=== PATIENT | female | born 1960 ===

== ENCOUNTER 2016-08-25 14:25 | Emergency (ER) | payer OTHER ==
[2016-08-25 14:26] VITALS: BMI 23.3
[2016-08-25 14:36] VITALS: BP 130/79; PULSE 95; RESP 18; TEMP 98.2
[2016-08-25] MEDS ORDERED: Sodium Chloride 0.9% 1,000 ML IV STA (14:56)
--- NOTE | 2016-08-25 15:00 | ED PDOC ---
Arrival/HPI - General Chief Complaint: Abdominal Pain Time Seen by Provider: 08/25/16 14:48 Historian: Patient, Parent, Front End Mechanic - History of Present Illness Time/Duration: Other (Several weeks) Symptom Onset: Gradual Symptom Course: Worsening Quality: Aching, Cramping Severity Level: Severe Activities at Onset: Rest Associated Symptoms (Text): 08/25/16 14:58 Several week history of abdominal pain with radiation into her back. Especially on the left side. No nausea vomiting or diarrhea. No genitourinary symptoms. No fever or chills. Patient has had [address] scans of the abdomen and pelvis in the last year. She had an unrevealing MRI of the lumbosacral spine. Unrevealing ultrasound. Past Medical History - Past History Past History: Non-Contributing - Infectious Disease Hx of Infectious Diseases: None - Tetanus Immunization Tetanus Immunization: Unknown - Reproductive Menopause: Yes - Cardiac Hx Cardiac Disorders: No Hx Hypertension: (?) - Pulmonary Hx Respiratory Disorders: No - Neurological Hx Neurological Disorder: No - HEENT Hx HEENT Disorder: No - Renal Hx Renal Disorder: Yes (RENAL COLIC,ABDOMINOPLASTY-"BLADDER SX") - Endocrine/Metabolic Hx Endocrine Disorders: No - Hematological/Oncological Hx Blood Disorders: No - Integumentary Hx Dermatological Disorder: No - Musculoskeletal/Rheumatological Hx Back Pain: Yes - Gastrointestinal Hx Gall Bladder Disease: Yes Hx Hemorrhoids: Yes - Genitourinary/Gynecological Hx Urinary Tract Infection: Yes - Psychiatric Hx Psychophysiologic Disorder: No Hx Substance Use: No - Surgical History Hx Section: Yes Other/Comment: Abdominoplasty, "bladder surgery" - Anesthesia Hx Anesthesia: Yes Hx Anesthesia Reactions: No Hx Malignant Hyperthermia: No - Suicidal Assessment Feels Threatened In Home Enviroment: No Family/Social History - Physician Review Nursing Documentation Reviewed: Yes Family/Social History: Unknown Family HX Smoking Status: Never Smoked Hx Alcohol Use: No Hx Substance Use: No Hx Substance Use Treatment: No Allergies/Home Meds Allergies/Adverse Reactions: Allergies No Known Allergies Allergy (Verified 06/22/16 12:46) Home Medications: Home Meds Medication Instructions Recorded Confirmed Amitriptyline [Elavil] 50 mg 08/25/16 Famotidine [Pepcid] 20 mg PO ONCE 08/25/16 08/25/16 Zolpidem Tartrate [Ambien] 10 mg PO HS 08/25/16 08/25/16 Review of Systems - Physician Review All systems were reviewed & negative as marked: Yes - Review of Systems Constitutional: absent: Fevers Respiratory: absent: SOB, Cough Cardiovascular: absent: Chest Pain, Palpitations, Syncope Gastrointestinal: Abdominal Pain. absent: Constipation, Diarrhea, Nausea, Vomiting Genitourinary Female: absent: Dysuria, Frequency, Hematuria Neurological: absent: Headache, Dizziness Physical Exam Vital Signs Temp Pulse Resp BP Pulse Ox 08/25/16 16:11 98.2 F 95 H 18 130/79 97 08/25/16 14:31 98.2 F 95 H 18 130/79 98 Temperature: Afebrile Blood Pressure: Normal Pulse: Regular Respiratory Rate: Normal Appearance: Positive for: Well-Appearing, Non-Toxic, Uncomfortable Pain Distress: Mild Mental Status: Positive for: Alert and Oriented X 3 - Systems Exam Head: Present: Atraumatic, Normocephalic Pupils: Present: PERRL Extroacular Muscles: Present: EOMI Conjunctiva: Present: Normal Mouth: Present: Moist Mucous Membranes Pharnyx: No: ERYTHEMA, EXUDATE, TONSILS ENLARGED Neck: Present: Normal Range of Motion. No: MIDLINE TENDERNESS, Paraspinal Tenderness Respiratory/Chest: Present: Clear to Auscultation, Good Air Exchange. No: Respiratory Distress, Accessory Muscle Use Cardiovascular: Present: Regular Rate and Rhythm, Normal S1, S2. No: Murmurs Abdomen: Present: Tenderness (Mild generalized abdominal tenderness with no guarding and no rebound and laparoscopic scars), Normal Bowel Sounds. No: Distention, Peritoneal Signs, Rebound, Guarding Back: Present: Normal Inspection. No: CVA Tenderness, Midline Tenderness, Paraspinal Tenderness Upper Extremity: Present: Normal Inspection. No: Cyanosis, Edema Lower Extremity: Present: Normal Inspection. No: Edema Neurological: Present: GCS=15, CN II-XII Intact, Speech Normal, Motor Func Grossly Intact Skin: Present: Warm, Dry, Normal Color. No: Rashes Medical Decision Making - Lab Interpretations Lab Results: 08/25/16 15:00 08/25/16 15:00 Lab Results 08/25/16 15:00: WBC 5.1, RBC 3.73, Hgb 12.1, Hct 35.7 L, MCV 95.7, MCH 32.4, MCHC 33.9, RDW 13.7, Plt Count 239, MPV 9.2, Gran % 42.6 L, Lymph % (Auto) 48.4 H, Hendricks % (Auto) 6.1 H, Eos % (Auto) 2.5, Baso % (Auto) 0.4, Gran # 2.17, Lymph # 2.5, [place]ricks # 0.3, Eos # 0.1, Baso # 0.02, Sodium 139, Potassium 4.4, Chloride 101, Carbon Dioxide 31, Anion Gap 11, BUN 9, Creatinine 0.7, Est GFR ( Amer) > 60, Est GFR (Non-Af Amer) > 60, Random Glucose 87, Calcium 9.4, Total Bilirubin 0.7, AST 31, ALT 24, Alkaline Phosphatase 79, Total Protein 8.6 H, Albumin 4.3, Globulin 4.3, Albumin/Globulin Ratio 1.0 L, Lipase 56, Urine Color Yellow, Urine Appearance Turbid, Urine pH 7.0, Ur Specific [place] 1.010, Urine Protein Negative, Urine Glucose (UA) Negative, Urine Ketones Negative, Urine Blood Moderate H, Urine Nitrate Positive H, Urine Bilirubin Negative, Urine Urobilinogen 0.2, Ur Leukocyte Esterase Small H, Urine RBC 2 - 5, Urine WBC 15 - 20, Ur Epithelial Cells 1 - 3, Urine Bacteria Many - RAD Interpretation Radiology Orders: 08/25/16 14:56 ABD & PELVIS W/O PO OR IV CONT [CT] Stat CT scan of the abdomen and pelvis is read by the radiologist shows constipation , otherwise no acute findings Contact Center Rep: Radiologist - Medication Orders Current Medication Orders: Discontinued Medications Sodium Chloride (Sodium Chloride 0.9%) 1,000 mls @ 1,000 mls/hr IV .Q1H STA Stop: 08/25/16 15:55 Last Admin: 08/25/16 15:09 Dose: 1,000 MLS/HR eMAR Start Stop Document 08/25/16 15:09 GMD (Rec: 08/25/16 15:09 GMD [facility] [id number]) Intravenous Solution Start Date 08/25/16 Start Time 15:09 End Date 08/25/16 End time 16:09 Total Infusion Time 60 Ketorolac Tromethamine (Toradol) 30 mg IVP STAT STA Stop: 08/25/16 14:57 Last Admin: 08/25/16 15:09 Dose: 30 MG IVP Administration Document 08/25/16 15:09 GMD (Rec: 08/25/16 15:09 GMD [facility] [id number]) Charges for Administration # of IVP Administrations 1 Pantoprazole Sodium (Protonix Inj) 40 mg IVP STAT STA Stop: 08/25/16 14:57 Last Admin: 08/25/16 15:09 Dose: 40 MG IVP Administration Document 08/25/16 15:09 GMD (Rec: 08/25/16 15:09 GMD [facility] [id number]) Charges for Administration # of IVP Administrations 1 Disposition/Present on Arrival - Present on Arrival Any Indicators Present on Arrival: No History of DVT/PE: No History of Uncontrolled Diabetes: No Urinary Catheter: No History of Decub. Ulcer: No History Surgical Site Infection Following: None - Disposition Have Diagnosis and Disposition been Completed?: Yes Diagnosis: Abdominal pain, Urinary tract infection Disposition: HOME/ ROUTINE Disposition Time: 16:21 Patient Plan: Discharge Patient Problems: Current Active Problems Problem Status Diagnosed Colitis Acute Condition: IMPROVED Discharge Instructions (ExitCare): Constipation (ED), Chronic Abdominal Pain in Children (ED), Abdominal Pain (ED), Acute Abdominal Pain (ED), Urinary Tract Infection in Women (ED) Prescriptions: Nitrofurantoin Macrocrystals [Macrobid] 100 mg PO BID #14 cap
[2016-08-25 15:12] LABS: ADD MANUAL DIFF? NO
[2016-08-25 15:16] LABS: BASO # 0.02 K/mm3 (0.0-2.0); BASO % 0.4 % (0.0-3.0); EOS # 0.1 (0.0-0.7); EOS % 2.5 % (1.5-5.0); GRAN # 2.17 (1.4-6.5); GRAN % 42.6 % (50.0-68.0); HEMATOCRIT 35.7 % (36.0-48.0); LYMPH # 2.5 (1.2-3.4); LYMPH % 48.4 % (22.0-35.0); MEAN CELL VOLUME 95.7 fL (80.0-105.0); MEAN CORPUSCULAR HEMOGLOBIN 32.4 pg (25.0-35.0); MEAN CORPUSCULAR HGB CONC 33.9 g/dl (31.0-37.0); MEAN PLATELET VOLUME 9.2 fl (7.0-11.0); MONO # 0.3 (0.1-0.6); MONO % 6.1 % (1.0-6.0); PLATELET COUNT 239 10^3/uL (120.0-450.0); RED CELL DISTRIBUTION WIDTH 13.7 % (11.5-14.5); URINE BILIRUBIN NEGATIVE (NEGATIVE); URINE BLOOD MODERATE (NEGATIVE); URINE GLUCOSE (UA) NEGATIVE (NEGATIVE); URINE KETONE NEGATIVE (NEGATIVE); URINE LEUKOCYTE ESTERASE SMALL Leu/uL (NEGATIVE); URINE PROTEIN NEGATIVE mg/dL (<30 mg/dL); URINE UROBILINOGEN 0.2 E.U./dL (<1 E.U./dL); WHITE BLOOD COUNT 5.1 10^3/ul (4.5-11.0)
[2016-08-25 15:18] LABS: URINE APPEARANCE TURBID (CLEAR); URINE COLOR YELLOW (YELLOW)
[2016-08-25 15:19] LABS: URINE BACTERIA MANY (NEG); URINE WBC 15 - 20 /hpf (0-6)
[2016-08-25 15:28] LABS: ALKALINE PHOSPHATASE 79 U/L (38-133); ALT/SGPT 24 U/L (7-56); AST/SGOT 31 U/L (15-39); BILIRUBIN,TOTAL 0.7 mg/dL (0.2-1.3); BLOOD UREA NITROGEN 9 mg/dL (7-21); CALCIUM 9.4 mg/dL (8.4-10.5); CARBON DIOXIDE 31 mmol/L (21-33); CHLORIDE 101 mmol/L (98-107); GFR AFRICAN-AMERICAN > 60; GLUCOSE,RANDOM 87 mg/dL (70-110); LIPASE 56 U/L (23-300); SODIUM 139 mmol/L (132-148); TOTAL PROTEIN 8.6 g/dL (5.8-8.3)
[2016-08-25 15:31] LABS: POTASSIUM 4.4 mmol/L (3.6-5.0)
--- NOTE | 2016-08-25 15:59 | CT ---
PROCEDURE: CT Abdomen and Pelvis without Oral or IV contrast. HISTORY: left sided pain COMPARISON: CT abdomen and pelvis with contrast performed 06/22/16 TECHNIQUE: Contiguous axial images of the abdomen and pelvis. No oral or IV contrast administered. Coronal and Sagittal reformats generated and reviewed. Radiation dose: Total exam DLP = 405.85 mGy-cm. FINDINGS: There is limited evaluation of the solid organs without the administration of IV contrast. LOWER THORAX: Mild bibasilar atelectasis. There is no visible pleural effusion or pneumothorax. LIVER: Unremarkable unenhanced appearance. GALLBLADDER AND BILE DUCTS: Cholecystectomy. PANCREAS: Unremarkable unenhanced appearance. SPLEEN: Unremarkable unenhanced appearance. ADRENALS: Unremarkable unenhanced appearance. KIDNEYS AND URETERS: No hydronephrosis or obstructing renal calculus. BLADDER: The urinary bladder appears unremarkable. REPRODUCTIVE: Uterus is present. 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 APPENDIX: The appendix appears within normal limits of caliber. No secondary signs of acute appendicitis. BOWEL: The stomach is nondistended. Lack of oral contrast limits evaluation for bowel pathology. The bowel loops appear within normal limits of caliber without evidence of intestinal obstruction. Moderate diffuse constipation. PERITONEUM: No significant free fluid. No definite free air. LYMPH NODES: No bulky lymphadenopathy identified. VASCULATURE: Grossly unremarkable unenhanced appearance. No aortic aneurysm. BONES: Degenerative changes of the spine. OTHER FINDINGS: None. IMPRESSION: Moderate diffuse constipation. Cholecystectomy.
[2016-08-25 16:12] VITALS: O2SAT 97
== END 2016-08-25 16:46 | disposition home or self-care (01) ==
LOC: ED 14:25
DX: N39.0 Urinary tract infection, site not specified (principal); R10.9 Unspecified abdominal pain
CPT/HCPCS: 74176; 80053; 81001; 83690; 85025; 87086; 87181; 96361; 96374; 96375; 99284; C9113; J1885; J7040

== ENCOUNTER 2017-10-25 08:54 | Emergency (ER) | payer OTHER ==
[2017-10-25 08:57] VITALS: BMI 23.3
[2017-10-25 09:19] VITALS: RESP 18
[2017-10-25] MEDS ORDERED: Alum-Mag Hydrox-Simethicone Susp (30 mL) PO STA (09:30)
[2017-10-25] MEDS ORDERED: Atrop/Hyosc/Scopal/PB Elixir (120 ml) PO STA (09:30)
[2017-10-25] MEDS ORDERED: Sodium Chloride 0.9% 500 ML IV STA (09:30)
--- NOTE | 2017-10-25 09:30 | ED PDOC ---
Arrival/HPI - General Chief Complaint: Abdominal Pain Time Seen by Provider: 10/25/17 09:19 Historian: Patient - History of Present Illness Narrative History of Present Illness (Text): 10/25/17 09:30 This 57 yo female presents to this ED c/o generalized abdominal pain x 1 day. Patient has multiple visit for abdominal pain in this Emergency department before. Patient tolerates PO fluids, and meals. Denies nausea, vomiting, diarrhea, urinary symptoms. Time/Duration: Other (see hpi) Context: Home Past Medical History - Provider Review Nursing Documentation Reviewed: Yes - Past History Past History: Non-Contributing - Infectious Disease Hx of Infectious Diseases: None - Tetanus Immunization Tetanus Immunization: Unknown - Cardiac Hx Cardiac Disorders: No Hx Hypertension: (?) - Pulmonary Hx Respiratory Disorders: No - Neurological Hx Neurological Disorder: No - HEENT Hx HEENT Disorder: No - Renal Hx Renal Disorder: Yes (RENAL COLIC,ABDOMINOPLASTY-"BLADDER SX") - Endocrine/Metabolic Hx Endocrine Disorders: No - Hematological/Oncological Hx Blood Disorders: No - Integumentary Hx Dermatological Disorder: No - Musculoskeletal/Rheumatological Hx Back Pain: Yes - Gastrointestinal Hx Gall Bladder Disease: Yes Hx Hemorrhoids: Yes - Genitourinary/Gynecological Hx Urinary Tract Infection: Yes - Psychiatric Hx Psychophysiologic Disorder: No Hx Substance Use: No - Surgical History Hx Section: Yes Other/Comment: Abdominoplasty, "bladder surgery" - Anesthesia Hx Anesthesia: Yes Hx Anesthesia Reactions: No Hx Malignant Hyperthermia: No - Suicidal Assessment Feels Threatened In Home Enviroment: No Family/Social History - Physician Review Nursing Documentation Reviewed: Yes Family/Social History: Other (noncontributory) Smoking Status: Never Smoked Hx Alcohol Use: No Hx Substance Use: No Hx Substance Use Treatment: No Allergies/Home Meds Allergies/Adverse Reactions: Allergies No Known Allergies Allergy (Verified 10/25/17 09:19) Home Medications: Home Meds Medication Instructions Recorded Confirmed Zolpidem Tartrate [Ambien] 10 mg PO HS 08/25/16 10/25/17 Cyclobenzaprine [Flexeril] 1 tab PO DAILY 10/25/17 10/25/17 Gabapentin [Neurontin] 1 cap PO QID 10/25/17 10/25/17 Hydrocodone/Acetaminophen 1 tab PO PRN PRN 10/25/17 10/25/17 [Hydrocodone-Acetamin 5-325 mg] Mirtazapine [Remeron] 1 tab PO HS 10/25/17 10/25/17 Naproxen [Naproxen] 1 tab PO PRN PRN 10/25/17 10/25/17 Omeprazole [Omeprazole] 1 cap PO BID 10/25/17 10/25/17 Vortioxetine Hydrobromide 1 tab PO DAILY 10/25/17 10/25/17 [Trintellix] Review of Systems - Review of Systems Constitutional: Normal. absent: Fatigue, Weight Change, Fevers Eyes: Normal ENT: Normal Respiratory: Normal. absent: SOB, Cough Cardiovascular: Normal Gastrointestinal: Abdominal Pain. absent: Stool Changes, Constipation, Nausea, Vomiting Genitourinary Female: Normal. absent: Dysuria, Frequency, Hematuria, Vaginal Bleeding Musculoskeletal: Normal Skin: Normal Neurological: Normal Endocrine: Normal Hemo/Lymphatic: Normal Psychiatric: Normal Physical Exam Vital Signs Temp Pulse Resp BP Pulse Ox 10/25/17 12:31 18 100 10/25/17 12:24 68 18 122/78 98 10/25/17 09:17 98 F 85 18 116/78 99 Temperature: Afebrile Blood Pressure: Normal Pulse: Regular Respiratory Rate: Normal Appearance: Positive for: Well-Appearing, Non-Toxic, Comfortable Pain Distress: None Mental Status: Positive for: Alert and Oriented X 3 - Systems Exam Head: Present: Atraumatic, Normocephalic Pupils: Present: PERRL Extroacular Muscles: Present: EOMI Conjunctiva: Present: Normal Mouth: Present: Moist Mucous Membranes Neck: Present: Normal Range of Motion Respiratory/Chest: Present: Clear to Auscultation, Good Air Exchange. No: Respiratory Distress, Accessory Muscle Use Cardiovascular: Present: Regular Rate and Rhythm, Normal S1, S2. No: Murmurs Abdomen: No: Tenderness, Distention, Peritoneal Signs, Rebound, Guarding Genitourinary/Pelvic Exam: Present: Other (deferred by patient) Back: Present: Normal Inspection Upper Extremity: Present: Normal Inspection, Normal ROM, NORMAL PULSES. No: Cyanosis, Edema Lower Extremity: Present: Normal Inspection, NORMAL PULSES, Normal ROM. No: Edema Neurological: Present: GCS=15, CN II-XII Intact, Speech Normal, Motor Func Grossly Intact, Normal Sensory Function, Normal Cerebellar Funct, Gait Normal, Memory Normal Skin: Present: Warm, Dry, Normal Color. No: Rashes Psychiatric: Present: Alert, Oriented x 3, Normal Insight, Normal Concentration Medical Decision Making ED Course and Treatment: 10/25/17 11:48 Re-evaluation. Patient feels better. Discussed results and plan with patient who expresses understanding. All questions answered and there is agreement with the plan to discharge home with instructions. Patient stable for discharge. Return if symptoms persist or worsen. I reviewed CT scan, and labs result wit patient. Patient requested antibiotic. Patient is requesting Percocet for pain. I told patient that she has a Hx. constipation, and Percocet could make her become more constipated. I will be given her a prescription for constipation, and to Dr. Greene, GI doctor. Patient understood plan. 10/25/17 11:54 Patient noted a vaginal discharge for 2 months. I will order STD test, Rocephine, and Azithromycin Re-evaluation Time: 11:48 Reassessment Condition: Re-examined, Improved - Lab Interpretations Microbiology Results: Microbiology Results 10/25/17 10:51 Urine,Clean Catch Urine Culture - Final No Growth (<1,000 CFU/ML) Lab Results: 10/25/17 09:52 10/25/17 09:52 Lab Results 10/25/17 12:08: C.trachomatis RNA (TMA) Not detected, N.gonorrhoeae RNA (TMA) Not detected 10/25/17 09:52: Sodium 145, Potassium 4.2, Chloride 104, Carbon Dioxide 30, Anion Gap 15, BUN 6 L, Creatinine 0.7, Est GFR ( Amer) > 60, Est GFR (Non -Af Amer) > 60, Random Glucose 101, Calcium 9.4, Magnesium 2.1, Total Bilirubin 0.6, AST 25, ALT 21, Alkaline Phosphatase 81, Total Protein 8.3, Albumin 4.6, Globulin 3.7, Albumin/Globulin Ratio 1.2, Lipase 64 10/25/17 09:52: Urine Color Yellow, Urine Appearance Sl cloudy, Urine pH 6.0, Ur Specific [place] 1.010, Urine Protein Negative, Urine Glucose (UA) Negative, Urine Ketones Negative, Urine Blood Moderate H, Urine Nitrate Negative, Urine Bilirubin Negative, Urine Urobilinogen 0.2, Ur Leukocyte Esterase Small H, Urine RBC 1 - 3, Urine WBC 1 - 3, Ur Epithelial Cells 6 - 8, Urine Bacteria Trace 10/25/17 09:52: WBC 5.2, RBC 3.89, Hgb 12.5, Hct 36.6, MCV 94.1, MCH 32.1, MCHC 34.2, RDW 13.3, Plt Count 266, MPV 9.4, Gran % 36.0 L, Lymph % (Auto) 51.7 H, [place] % (Auto) 7.6 H, Eos % (Auto) 3.9, Baso % (Auto) 0.8, Gran # 1.86, Lymph # ( Auto) 2.7, [place] # (Auto) 0.4, Eos # (Auto) 0.2, Baso # (Auto) 0.04 I have reviewed the lab results: Yes Interpretation: No clinic. lab abnormalty - RAD Interpretation Narrative RAD Interpretations (Text): 10/25/17 11:51 PROCEDURE: CT Abdomen and Pelvis with contrast HISTORY: abdominal pain COMPARISON: None. TECHNIQUE: Contrast dose: 100 cc of Omni 350 Radiation dose: Total exam DLP = 552 mGy-cm. This CT exam was performed using one or more of the following dose reduction techniques: Automated exposure control, adjustment of the mA and/or kV according to patient size, and/or use of iterative reconstruction technique. FINDINGS: LOWER THORAX: Unremarkable. LIVER: Unremarkable. No gross lesion or ductal dilatation. GALLBLADDER AND BILE DUCTS: Gallbladder removed PANCREAS: Unremarkable. No gross lesion or ductal dilatation. SPLEEN: Unremarkable. ADRENALS: Unremarkable. No mass. KIDNEYS AND URETERS: Unremarkable. No hydronephrosis. No solid mass. VASCULATURE: Unremarkable. No aortic aneurysm. BOWEL: Unremarkable. No obstruction. No gross mural thickening. APPENDIX: Normal appendix. PERITONEUM: Unremarkable. No free fluid. No free air. LYMPH NODES: Unremarkable. No enlarged lymph nodes. BLADDER: Unremarkable. REPRODUCTIVE: Unremarkable. BONES: No acute fracture. OTHER FINDINGS: None. IMPRESSION: No acute findings Radiology Orders: 10/25/17 09:32 ABD & PELVIS IV CONTRAST ONLY [CT] Stat - Medication Orders Current Medication Orders: Discontinued Medications Al Hydrox/Mg Hydrox/Simethicone (Maalox Plus 30 Ml) 30 ml PO STAT STA Stop: 10/25/17 09:31 Last Admin: 10/25/17 09:53 Dose: 30 ml Azithromycin (Zithromax) 1,000 mg PO STAT STA PRN Reason: Protocol Stop: 10/25/17 11:57 Last Admin: 10/25/17 12:13 Dose: 1,000 mg Belladonna/Phenobarbital ( Elixir) 10 ml PO STAT STA Stop: 10/25/17 09:31 Last Admin: 10/25/17 10:12 Dose: 10 ml Ceftriaxone Sodium (Rocephin) 250 mg IM STAT STA PRN Reason: Protocol Stop: 10/25/17 11:56 Last Admin: 10/25/17 12:13 Dose: 250 mg IM Administration Charges Document 10/25/17 12:13 GMD (Rec: 10/25/17 12:13 GMD [id number]) Injection Site MAR Injection Site Left Deltoid Charges for Administration # of IM Administrations 1 Sodium Chloride (Sodium Chloride 0.9%) 500 mls @ 1,000 mls/hr IV .Q30M STA Stop: 10/25/17 09:59 Last Admin: 10/25/17 09:53 Dose: 1,000 mls/hr eMAR Start Stop Document 10/25/17 09:53 GMD (Rec: 10/25/17 09:54 GMD [id number]) Intravenous Solution Start Date 10/25/17 Start Time 09:54 End Date 10/25/17 End time 10:24 Total Infusion Time 30 Ketorolac Tromethamine (Toradol) 15 mg IVP STAT STA Stop: 10/25/17 09:35 Last Admin: 10/25/17 09:53 Dose: 15 mg MAR Pain Assessment Document 10/25/17 09:53 GMD (Rec: 10/25/17 09:53 GMD [id number]) Pain Reassessment Is this a pain reassessment? No Presence of Pain Presence of Pain Yes IVP Administration Document 10/25/17 09:53 GMD (Rec: 10/25/17 09:53 GMD [id number]) Charges for Administration # of IVP Administrations 1 Lidocaine HCl (Lidocaine 2% Viscous) 5 ml MM STAT STA Stop: 10/25/17 09:31 Last Admin: 10/25/17 09:53 Dose: 5 ml Oxycodone/Acetaminophen (Percocet 5/325 Mg Tab) 1 tab PO STAT STA Stop: 10/25/17 11:57 Last Admin: 10/25/17 12:13 Dose: 1 tab MAR Pain Assessment Document 10/25/17 12:13 GMD (Rec: 10/25/17 12:13 GMD [id number]) Pain Reassessment Is this a pain reassessment? No Presence of Pain Presence of Pain Yes Pantoprazole Sodium (Protonix Inj) 40 mg IVP STAT STA Stop: 10/25/17 09:31 Last Admin: 10/25/17 09:53 Dose: 40 mg IVP Administration Document 10/25/17 09:53 GMD (Rec: 10/25/17 09:53 GMD [id number]) Charges for Administration # of IVP Administrations 1 Disposition/Present on Arrival - Present on Arrival Any Indicators Present on Arrival: No History of DVT/PE: No History of Uncontrolled Diabetes: No Urinary Catheter: No History of Decub. Ulcer: No History Surgical Site Infection Following: None - Disposition Have Diagnosis and Disposition been Completed?: Yes Diagnosis: Nonspecific abdominal pain, Constipation, Vaginal discharge, Drug-seeking behavior Disposition: HOME/ ROUTINE Disposition Time: 11:57 Patient Plan: Discharge Condition: GOOD Discharge Instructions (ExitCare): Constipation, Adult (DC) Print Language: PORTUGUESE Additional Instructions: Call private [employer] doctor for follow up visit. take medication as instructed. Call Dr. Greene for revaluation and your private doctor. Return to emergency if symptoms worsen. Prescriptions: Cephalexin [cephalexin] 500 mg PO BID #14 cap Lactulose 20 gm PO BID PRN #120 ml PRN Reason: Constipation metroNIDAZOLE [Flagyl] 2,000 mg PO DAILY #4 tab Referrals: Siri Barnes DO [Primary Care Provider] - Follow up with primary Forms: [employer] (Burkinan)
[2017-10-25 10:01] LABS: BASO # 0.04 K/mm3 (0.0-2.0); BASO % 0.8 % (0.0-3.0); EOS # 0.2 (0.0-0.7); EOS % 3.9 % (1.5-5.0); GRAN # 1.86 (1.4-6.5); HEMOGLOBIN 12.5 g/dL (12.0-16.0); LYMPH # 2.7 (1.2-3.4); LYMPH % 51.7 % (22.0-35.0); MEAN CELL VOLUME 94.1 fl (80.0-105.0); MEAN CORPUSCULAR HEMOGLOBIN 32.1 pg (25.0-35.0); MEAN CORPUSCULAR HGB CONC 34.2 g/dl (31.0-37.0); MEAN PLATELET VOLUME 9.4 fl (7.0-11.0); MONO # 0.4 (0.1-0.6); MONO % 7.6 % (1.0-6.0); RBC 3.89 10^6/uL (3.5-6.1); RED CELL DISTRIBUTION WIDTH 13.3 % (11.5-14.5); WHITE BLOOD COUNT 5.2 10^3/ul (4.5-11.0)
[2017-10-25 10:02] LABS: URINE BILIRUBIN NEGATIVE (NEGATIVE); URINE BLOOD MODERATE (NEGATIVE); URINE GLUCOSE (UA) NEGATIVE (NEGATIVE); URINE LEUKOCYTE ESTERASE SMALL Leu/uL (NEGATIVE); URINE PROTEIN NEGATIVE mg/dL (<30 mg/dL); URINE UROBILINOGEN 0.2 E.U./dL (<1 E.U./dL)
[2017-10-25] MEDS ORDERED: Iohexol 350 MG/100 ML VIAL ONE (10:03)
[2017-10-25 10:04] LABS: URINE APPEARANCE SL CLOUDY (CLEAR); URINE COLOR YELLOW (YELLOW)
[2017-10-25 10:11] LABS: URINE BACTERIA TRACE (NEG)
[2017-10-25 10:12] LABS: ALB/GLOB RATIO 1.2 (1.1-1.8); ALBUMIN 4.6 g/dL (3.0-4.8); ALT/SGPT 21 U/L (7-56); AST/SGOT 25 U/L (14-36); BLOOD UREA NITROGEN 6 mg/dL (7-21); CALCIUM 9.4 mg/dL (8.4-10.5); GFR AFRICAN-AMERICAN > 60; GFR NON-AFRICAN AMERICAN > 60; LIPASE 64 U/L (23-300)
--- NOTE | 2017-10-25 10:55 | CT ---
PROCEDURE: CT Abdomen and Pelvis with contrast HISTORY: abdominal pain COMPARISON: None. TECHNIQUE: Contrast dose: 100 cc of Omni 350 Radiation dose: Total exam DLP = 552 mGy-cm. This CT exam was performed using one or more of the following dose reduction techniques: Automated exposure control, adjustment of the mA and/or kV according to patient size, and/or use of iterative reconstruction technique. FINDINGS: LOWER THORAX: Unremarkable. LIVER: Unremarkable. No gross lesion or ductal dilatation. GALLBLADDER AND BILE DUCTS: Gallbladder removed PANCREAS: Unremarkable. No gross lesion or ductal dilatation. SPLEEN: Unremarkable. ADRENALS: Unremarkable. No mass. KIDNEYS AND URETERS: Unremarkable. No hydronephrosis. No solid mass. VASCULATURE: Unremarkable. No aortic aneurysm. BOWEL: Unremarkable. No obstruction. No gross mural thickening. APPENDIX: Normal appendix. PERITONEUM: Unremarkable. No free fluid. No free air. LYMPH NODES: Unremarkable. No enlarged lymph nodes. BLADDER: Unremarkable. REPRODUCTIVE: Unremarkable. BONES: No acute fracture. OTHER FINDINGS: None. IMPRESSION: No acute findings
[2017-10-25] MEDS ORDERED: cefTRIAXone (Rocephin) 250 mg Inj IM STA (11:55)
[2017-10-25] MEDS ORDERED: Oxycodone/Acetaminophen 5/325 mg Tab PO STA (11:56)
[2017-10-25 12:04] VITALS: TEMP 98
[2017-10-25 12:24] VITALS: BP 122/78; PULSE 68
[2017-10-25 12:32] VITALS: O2SAT 100
== END 2017-10-25 12:31 | disposition home or self-care (01) ==
LOC: ED 08:54
DX: K59.00 Constipation, unspecified (principal); N89.8 Other specified noninflammatory disorders of vagina; R10.84 Generalized abdominal pain; Z76.5 Malingerer [conscious simulation]
CPT/HCPCS: 74177; 80053; 81001; 83690; 83735; 85025; 87086; 87491; 87591; 96372; 96374; 96375; 99284; C9113; J0696; J1885; J7040; Q9967

== ENCOUNTER 2017-12-06 08:53 | Emergency (ER) | payer OTHER ==
[2017-12-06 08:53] VITALS: BMI 23.3
--- NOTE | 2017-12-06 09:44 | ED PDOC ---
Arrival/HPI - General Chief Complaint: GI Problem Time Seen by Provider: 12/06/17 09:28 Historian: Patient - History of Present Illness Narrative History of Present Illness (Text): 12/06/17 09:40 57 y/o female, pmh including colitis, post menopausal, nkda, c/o abdominal pain x 3-4 weeks. Pt. stated that she has upper abdominal pain on and off x 3-4 weeks associated with occasional feeling nausea/vomiting, occasionally with watery diarrhea, no recent reporting diarrhea, no palpitation, no chest pain or shortness of breath, no other medical or psychological complaints. Past Medical History - Provider Review Nursing Documentation Reviewed: Yes - Past History Past History: Non-Contributing - Infectious Disease Hx of Infectious Diseases: None - Tetanus Immunization Tetanus Immunization: Unknown - Reproductive Menopause: Yes - Cardiac Hx Cardiac Disorders: No Hx Hypertension: Yes (?) - Pulmonary Hx Respiratory Disorders: No - Neurological Hx Neurological Disorder: No - HEENT Hx HEENT Disorder: No - Renal Hx Renal Disorder: Yes (RENAL COLIC,ABDOMINOPLASTY-"BLADDER SX") - Endocrine/Metabolic Hx Endocrine Disorders: No - Hematological/Oncological Hx Blood Disorders: No - Integumentary Hx Dermatological Disorder: No - Musculoskeletal/Rheumatological Hx Back Pain: Yes - Gastrointestinal Hx Gall Bladder Disease: Yes Hx Hemorrhoids: Yes - Genitourinary/Gynecological Hx Urinary Tract Infection: Yes - Psychiatric Hx Psychophysiologic Disorder: No Hx Substance Use: No - Surgical History Hx Section: Yes Hx Cholecystectomy: Yes Hx Hysterectomy: Yes Other/Comment: Abdominoplasty, "bladder surgery" - Anesthesia Hx Anesthesia: Yes Hx Anesthesia Reactions: No Hx Malignant Hyperthermia: No - Suicidal Assessment Feels Threatened In Home Enviroment: No Family/Social History - Physician Review Nursing Documentation Reviewed: Yes Family/Social History: Unknown Family HX Smoking Status: Never Smoked Hx Alcohol Use: No Hx Substance Use: No Hx Substance Use Treatment: No Allergies/Home Meds Allergies/Adverse Reactions: Allergies No Known Allergies Allergy (Verified 10/25/17 09:19) Home Medications: Home Meds Medication Instructions Recorded Confirmed Zolpidem Tartrate [Ambien] 10 mg PO HS 08/25/16 12/06/17 Cyclobenzaprine [Flexeril] 1 tab PO DAILY 10/25/17 12/06/17 Gabapentin [Neurontin] 1 cap PO QID 10/25/17 12/06/17 Hydrocodone/Acetaminophen 1 tab PO PRN PRN 10/25/17 12/06/17 [Hydrocodone-Acetamin 5-325 mg] Mirtazapine [Remeron] 1 tab PO HS 10/25/17 12/06/17 Naproxen [Naproxen] 1 tab PO PRN PRN 10/25/17 12/06/17 Omeprazole [Omeprazole] 1 cap PO BID 10/25/17 12/06/17 Vortioxetine Hydrobromide 1 tab PO DAILY 10/25/17 12/06/17 [Trintellix] metroNIDAZOLE [Flagyl] 500 mg PO DAILY 12/06/17 12/06/17 Review of Systems - Review of Systems Constitutional: absent: Fatigue, Fevers Eyes: absent: Vision Changes ENT: absent: Hearing Changes Respiratory: absent: SOB, Cough Cardiovascular: absent: Chest Pain Gastrointestinal: Abdominal Pain, Diarrhea, Nausea, Vomiting Musculoskeletal: absent: Arthralgias, Back Pain Skin: absent: Rash, Pruritis Neurological: absent: Headache, Dizziness Psychiatric: absent: Anxiety, Depression, Suicidal Ideation Physical Exam Vital Signs Temp Pulse Resp BP Pulse Ox 12/06/17 12:15 63 20 135/78 100 12/06/17 09:10 98.8 F 76 18 127/88 99 - Systems Exam Head: Present: Atraumatic, Normocephalic Pupils: Present: PERRL Extroacular Muscles: Present: EOMI Conjunctiva: Present: Normal Mouth: Present: Moist Mucous Membranes Neck: Present: Normal Range of Motion Respiratory/Chest: Present: Clear to Auscultation, Good Air Exchange. No: Respiratory Distress, Accessory Muscle Use Cardiovascular: Present: Regular Rate and Rhythm, Normal S1, S2. No: Murmurs Abdomen: Present: Tenderness (epigastric), Other (negative elmore signs, negative mcburney point tenderness, no cva tenderness). No: Distention, Peritoneal Signs, Rebound, Guarding Back: Present: Normal Inspection Upper Extremity: Present: Normal Inspection. No: Cyanosis, Edema Lower Extremity: Present: Normal Inspection. No: Edema Neurological: Present: GCS=15, CN II-XII Intact, Speech Normal Skin: Present: Warm, Dry, Normal Color. No: Rashes Psychiatric: Present: Alert, Oriented x 3, Normal Insight, Normal Concentration Medical Decision Making ED Course and Treatment: 12/06/17 09:49 Differential: Colitis vs. UTI vs. Gastritis vs. Drug abuse -labs/lipase/UA -CT abdomen and pelvis -IV pepcid/zofran/toradol -Observe and reassess 12/06/17 14:20 -CT abdomen and pelvis show No acute findings related to/accounting for the clinical presentation but there is constipation. -Labs are non-significant -Lipase within normal limit -UA show +UTI, IV rocephine ordered -Relistor ordered as the patient is chronically on percocet for her chronic pain and this is likely opiod induced constipation -Pt. is comfortable, labs and radiology discussed with the patient, advised to follow up with the pmd for follow up. I advised the patient to stop macrobid and start keflex -Discharge home with keflex, pepcid, magnesium citrate, high fiber diet, follow up with your own pmd and urologist within 2 days, return to the ER for any new or worsening signs or symptoms. - Lab Interpretations Lab Results: 12/06/17 10:39 12/06/17 10:39 Lab Results 12/06/17 12:50: Urine Color Yellow, Urine Appearance Turbid, Urine pH 6.0, Ur Specific [place] 1.025, Urine Protein Negative, Urine Glucose (UA) Negative, Urine Ketones Negative, Urine Blood Moderate H, Urine Nitrate Negative, Urine Bilirubin Negative, Urine Urobilinogen 0.2, Ur Leukocyte Esterase Moderate H, Urine RBC 1 - 3, Urine WBC 5 - 10, Ur Epithelial Cells 4 - 5, Urine Bacteria Trace 12/06/17 10:39: WBC 5.3, RBC 3.62, Hgb 11.4 L, Hct 33.8 L, MCV 93.4, MCH 31.5, MCHC 33.7, RDW 13.2, Plt Count 225, MPV 9.8, Gran % 42.3 L, Lymph % (Auto) 48.7 H, Johnson % (Auto) 5.9, Eos % (Auto) 2.9, Baso % (Auto) 0.2, Gran # 2.23, Lymph # (Auto) 2.6, [place] # (Auto) 0.3, Eos # (Auto) 0.2, Baso # (Auto) 0.01 12/06/17 10:39: Sodium 144, Potassium 3.9, Chloride 105, Carbon Dioxide 28, Anion Gap 15, BUN 5 L, Creatinine 0.6 L, Est GFR ( Amer) > 60, Est GFR ( Non-Af Amer) > 60, Random Glucose 100, Calcium 9.2, Magnesium 2.0, Total Bilirubin 0.4, AST 24, ALT 20, Alkaline Phosphatase 74, Total Protein 7.7, Albumin 4.2, Globulin 3.5, Albumin/Globulin Ratio 1.2, Lipase 63 - RAD Interpretation Radiology Orders: 12/06/17 09:44 ABD & PELVIS IV CONTRAST ONLY [CT] Stat Date of service: 12/06/2017 PROCEDURE: CT Abdomen and Pelvis with contrast HISTORY: Abdominal pain/nausea/vomiting/diarrhea COMPARISON: 03/05/2017 and 10/25/[address] scans of the abdomen and pelvis. TECHNIQUE: Contrast dose: 100 cc Omnipaque 300 Radiation dose: Total exam DLP = 539.19 mGy-cm. This CT exam was performed using one or more of the following dose reduction techniques: Automated exposure control, adjustment of the mA and/or kV according to patient size, and/or use of iterative reconstruction technique. FINDINGS: LOWER THORAX: Unremarkable. LIVER: Unremarkable. No gross lesion or ductal dilatation. GALLBLADDER AND BILE DUCTS: Unremarkable. PANCREAS: Unremarkable. No gross lesion or ductal dilatation. SPLEEN: Unremarkable. ADRENALS: Unremarkable. No mass. KIDNEYS AND URETERS: Unremarkable. No hydronephrosis. No solid mass. VASCULATURE: Unremarkable. No aortic aneurysm. BOWEL: Constipation without fecal impaction or obstruction. APPENDIX: Normal appendix. PERITONEUM: Unremarkable. No free fluid. No free air. LYMPH NODES: Unremarkable. No enlarged lymph nodes. BLADDER: Unremarkable. REPRODUCTIVE: Unremarkable. BONES: No acute fracture. OTHER FINDINGS: None. IMPRESSION: No acute findings related to/accounting for the clinical presentation. Additional benign and/or incidental findings described above. No significant interval change compared to the prior examination(s). Goncalves Chalk Machine Operator: Radiologist - Medication Orders Current Medication Orders: Discontinued Medications Famotidine (Pepcid) 20 mg IVP STAT STA Stop: 12/06/17 09:45 Last Admin: 12/06/17 10:22 Dose: 20 mg IVP Administration Document 12/06/17 10:22 ISI (Rec: 12/06/17 10:22 ISI [id number]-PC) Charges for Administration # of IVP Administrations 1 Ceftriaxone Sodium (Rocephin 1 Gram Ivpb) 1 gm in 100 mls @ 200 mls/hr IVPB STAT STA PRN Reason: Protocol Stop: 12/06/17 14:13 Ketorolac Tromethamine (Toradol) 30 mg IVP STAT STA Stop: 12/06/17 09:45 Last Admin: 12/06/17 10:21 Dose: 30 mg [facility] Pain Assessment Document 12/06/17 10:21 ISI (Rec: 12/06/17 10:22 ISI [id number]) Pain Reassessment Is this a pain reassessment? No Sleep Is patient sleeping during reassessment? Yes Pain Scale Used Pain Scale Used Numeric IVP Administration Document 12/06/17 10:21 ISI (Rec: 12/06/17 10:22 ISI [id number]) Charges for Administration # of IVP Administrations 1 Re-Assess: [facility] Pain Assessment Document 12/06/17 11:21 ISI (Rec: 12/06/17 13:10 ISI BARRON-PC) Pain Reassessment Is this a pain reassessment? Yes Sleep Is patient sleeping during reassessment? No Presence of Pain Presence of Pain Yes Pain Scale Used Pain Scale Used Numeric Description Description Intermittent Intensity of Pain at present 5 Methylnaltrexone Creola (Relistor) 8 mg SC ONCE ONE Stop: 12/06/17 13:46 Ondansetron HCl (Zofran Inj) 4 mg IVP STAT STA Stop: 12/06/17 09:45 Last Admin: 12/06/17 10:22 Dose: 4 mg IVP Administration Document 12/06/17 10:22 ISI (Rec: 12/06/17 10:22 [facility] [id number]) Charges for Administration # of IVP Administrations 1 - PA / MANUFACTURING MANAGEMENT ASSOCIATE / Resident Statement MD/DO has reviewed & agrees with the documentation as recorded. Disposition/Present on Arrival - Present on Arrival Any Indicators Present on Arrival: No History of DVT/PE: No History of Uncontrolled Diabetes: No Urinary Catheter: No History of Decub. Ulcer: No History Surgical Site Infection Following: None - Disposition Have Diagnosis and Disposition been Completed?: Yes Diagnosis: Urinary tract infection, Abdominal pain, Constipation Disposition: HOME/ ROUTINE Disposition Time: 09:49 Patient Plan: Discharge Patient Problems: Current Active Problems Problem Status Onset Abdominal pain Acute Constipation Acute Urinary tract infection Acute Condition: IMPROVED Additional Instructions: -Discharge home with keflex, pepcid, magnesium citrate, high fiber diet, follow up with your own pmd and urologist within 2 days, return to the ER for any new or worsening signs or symptoms. Prescriptions: Cephalexin [Keflex] 500 mg PO TID #21 capsule Famotidine [Pepcid] 20 mg PO BID #20 tab Magnesium Citrate 296 ml PO ONCE #1 bot Referrals: Siri Barnes DO [Primary Care Provider] - Follow up with primary Dexter Craven MD [Staff Provider] - Follow up with primary Forms: WORK NOTE
[2017-12-06 10:47] LABS: BASO # 0.01 K/mm3 (0.0-2.0); BASO % 0.2 % (0.0-3.0); EOS # 0.2 (0.0-0.7); EOS % 2.9 % (1.5-5.0); GRAN # 2.23 (1.4-6.5); GRAN % 42.3 % (50.0-68.0); HEMOGLOBIN 11.4 g/dL (12.0-16.0); LYMPH # 2.6 (1.2-3.4); LYMPH % 48.7 % (22.0-35.0); MEAN CELL VOLUME 93.4 fl (80.0-105.0); MEAN CORPUSCULAR HEMOGLOBIN 31.5 pg (25.0-35.0); MEAN CORPUSCULAR HGB CONC 33.7 g/dl (31.0-37.0); MEAN PLATELET VOLUME 9.8 fl (7.0-11.0); MONO # 0.3 (0.1-0.6); MONO % 5.9 % (1.0-6.0); RBC 3.62 10^6/uL (3.5-6.1); RED CELL DISTRIBUTION WIDTH 13.2 % (11.5-14.5); WHITE BLOOD COUNT 5.3 10^3/ul (4.5-11.0)
[2017-12-06] MEDS ORDERED: Iohexol 350 MG/100 ML VIAL ONE (10:52)
[2017-12-06 10:57] LABS: ALB/GLOB RATIO 1.2 (1.1-1.8); ALBUMIN 4.2 g/dL (3.0-4.8); ALT/SGPT 20 U/L (7-56); AST/SGOT 24 U/L (14-36); BLOOD UREA NITROGEN 5 mg/dL (7-21); CALCIUM 9.2 mg/dL (8.4-10.5); GFR AFRICAN-AMERICAN > 60; GFR NON-AFRICAN AMERICAN > 60; LIPASE 63 U/L (23-300)
--- NOTE | 2017-12-06 12:28 | CT ---
Date of service: 12/06/2017 PROCEDURE: CT Abdomen and Pelvis with contrast HISTORY: Abdominal pain/nausea/vomiting/diarrhea COMPARISON: 03/05/2017 and 10/25/[address] scans of the abdomen and pelvis. TECHNIQUE: Contrast dose: 100 cc Omnipaque 300 Radiation dose: Total exam DLP = 539.19 mGy-cm. This CT exam was performed using one or more of the following dose reduction techniques: Automated exposure control, adjustment of the mA and/or kV according to patient size, and/or use of iterative reconstruction technique. FINDINGS: LOWER THORAX: Unremarkable. LIVER: Unremarkable. No gross lesion or ductal dilatation. GALLBLADDER AND BILE DUCTS: Unremarkable. PANCREAS: Unremarkable. No gross lesion or ductal dilatation. SPLEEN: Unremarkable. ADRENALS: Unremarkable. No mass. KIDNEYS AND URETERS: Unremarkable. No hydronephrosis. No solid mass. VASCULATURE: Unremarkable. No aortic aneurysm. BOWEL: Constipation without fecal impaction or obstruction. APPENDIX: Normal appendix. PERITONEUM: Unremarkable. No free fluid. No free air. LYMPH NODES: Unremarkable. No enlarged lymph nodes. BLADDER: Unremarkable. REPRODUCTIVE: Unremarkable. BONES: No acute fracture. OTHER FINDINGS: None. IMPRESSION: No acute findings related to/accounting for the clinical presentation. Additional benign and/or incidental findings described above. No significant interval change compared to the prior examination(s). Goncalves
[2017-12-06 13:07] LABS: URINE BILIRUBIN NEGATIVE (NEGATIVE); URINE BLOOD MODERATE (NEGATIVE); URINE GLUCOSE (UA) NEGATIVE (NEGATIVE); URINE LEUKOCYTE ESTERASE MODERATE Leu/uL (NEGATIVE); URINE PROTEIN NEGATIVE mg/dL (<30 mg/dL); URINE UROBILINOGEN 0.2 E.U./dL (<1 E.U./dL)
[2017-12-06 13:08] LABS: URINE APPEARANCE TURBID (CLEAR); URINE COLOR YELLOW (YELLOW)
[2017-12-06 13:20] LABS: URINE BACTERIA TRACE (NEG)
[2017-12-06] MEDS ORDERED: cefTRIAXone 1 gm 1 GM/100 ML BAG IVPB STA (13:44)
[2017-12-06 15:43] VITALS: BP 112/77; PULSE 74; RESP 18; TEMP 98.2; O2SAT 99
== END 2017-12-06 15:54 | disposition home or self-care (01) ==
LOC: ED 08:53
DX: K59.00 Constipation, unspecified (principal); N39.0 Urinary tract infection, site not specified; R10.10 Upper abdominal pain, unspecified; I10 Essential (primary) hypertension
CPT/HCPCS: 74177; 80053; 81001; 83690; 83735; 85025; 87086; 96365; 96372; 96375; 99284; J0696; J1885; J2212; J2405; Q9967

== ENCOUNTER 2018-02-08 16:30 | Inpatient (IN) | payer OTHER ==
[2018-02-08 16:31] VITALS: BMI 24.0
[2018-02-08] MEDS ORDERED: Sodium Chloride 0.9% 1,000 ML IV SCH (17:30)
[2018-02-08] MEDS ORDERED: Magnesium Hydroxide Susp 30 ml UD PO STA (18:05)
[2018-02-08 18:51] LABS: BASO # 0.02 K/mm3 (0.0-2.0); BASO % 0.2 % (0.0-3.0); EOS # 0.1 (0.0-0.7); GRAN # 4.17 (1.4-6.5); GRAN % 50.7 % (50.0-68.0); HEMOGLOBIN 12.9 g/dL (12.0-16.0); LYMPH # 3.4 (1.2-3.4); LYMPH % 41.2 % (22.0-35.0); MEAN CELL VOLUME 94.1 fl (80.0-105.0); MEAN CORPUSCULAR HEMOGLOBIN 31.5 pg (25.0-35.0); MEAN CORPUSCULAR HGB CONC 33.5 g/dl (31.0-37.0); MONO # 0.6 (0.1-0.6); MONO % 6.9 % (1.0-6.0); RBC 4.09 10^6/uL (3.5-6.1); RED CELL DISTRIBUTION WIDTH 13.4 % (11.5-14.5); WHITE BLOOD COUNT 8.2 10^3/ul (4.5-11.0)
[2018-02-08 19:00] LABS: INR 1.05; PARTIAL THROMBOPLASTIN TIME 30.5 Seconds (25.1-36.5)
[2018-02-08 19:03] LABS: ALB/GLOB RATIO 1.1 (1.1-1.8); ALBUMIN 4.5 g/dL (3.0-4.8); ALT/SGPT 23 U/L (7-56); AMYLASE 127 U/L (35-125); AST/SGOT 28 U/L (14-36); BLOOD UREA NITROGEN 7 mg/dL (7-21); CALCIUM 9.6 mg/dL (8.4-10.5); GFR NON-AFRICAN AMERICAN > 60; LIPASE 48 U/L (23-300)
[2018-02-08 20:38] LABS: URINE BILIRUBIN NEGATIVE (NEGATIVE); URINE BLOOD SMALL (NEGATIVE); URINE GLUCOSE (UA) NEGATIVE (NEGATIVE); URINE LEUKOCYTE ESTERASE MODERATE Leu/uL (NEGATIVE); URINE PROTEIN NEGATIVE mg/dL (<30 mg/dL); URINE UROBILINOGEN 0.2 E.U./dL (<1 E.U./dL)
[2018-02-08 21:26] LABS: URINE APPEARANCE SL CLOUDY (CLEAR); URINE COLOR YELLOW (YELLOW)
[2018-02-08 21:43] LABS: URINE EPITHELIAL CELLS 0 - 2 /hpf (0-5)
--- NOTE | 2018-02-08 21:58 | ED PDOC ---
Arrival/HPI - General Chief Complaint: GI Problem Time Seen by Provider: 02/08/18 16:45 Historian: Patient, Manufacturing Manager - History of Present Illness Narrative History of Present Illness (Text): 02/08/18 22:33 Patient is a 58 yo female with recent hemorrhoidectomy and polyp removal on by Dr. Hill, presents with generalized abdominal pain and difficulty moving bowels since surgery. Denies bloody drainage. Reports nausea. Reports decreased appetite. States pain will radiate to back. Denies chest pain or shortness of breath. Denies hematuria. 02/08/18 22:58 Time/Duration: Prior to Arrival Symptom Onset: Gradual Past Medical History - Past History Past History: Non-Contributing - Infectious Disease Hx of Infectious Diseases: None - Tetanus Immunization Tetanus Immunization: Unknown - Cardiac Hx Cardiac Disorders: Yes Hx Hypertension: Yes (?) - Neurological Hx Neurological Disorder: No Hx Migraine: Yes - Renal Hx Renal Disorder: Yes (RENAL COLIC,ABDOMINOPLASTY-"BLADDER SX") Hx Kidney Stones: Yes - Musculoskeletal/Rheumatological Hx Musculoskeletal Disorders: Yes Hx Back Pain: Yes Hx Falls: No Hx Herniated Disk: Yes (lumbar cervical) - Gastrointestinal Hx Gastrointestinal Disorders: Yes (COLITIS.POLYPS REMOVED) Hx Hemorrhoids: Yes - Genitourinary/Gynecological Hx Hematuria: Yes (01-14-15) - Psychiatric Hx Anxiety: No Hx Bipolar Disorder: No Hx Depression: No Hx Emotional Abuse: No Hx Hallucinations: No Hx Panic Disorder: No Hx Post Traumatic Stress Disorder: No Hx Psychosis: No Hx Physical Abuse: No Hx Schizophrenia: No Hx Sexual Abuse: No Hx Substance Use: No - Surgical History Other/Comment: Abdominoplasty, "bladder surgery" - Anesthesia Hx Anesthesia: Yes Hx Anesthesia Reactions: No Hx Malignant Hyperthermia: No - Suicidal Assessment Feels Threatened In Home Enviroment: No Family/Social History Family/Social History: Unknown Family HX Smoking Status: Never Smoked Hx Alcohol Use: No Hx Substance Use: No Hx Substance Use Treatment: No Allergies/Home Meds Allergies/Adverse Reactions: Allergies No Known Allergies Allergy (Verified 02/08/18 17:00) Home Medications: Home Meds Medication Instructions Recorded Confirmed Zolpidem Tartrate [Ambien] 10 mg PO HS 08/25/16 02/01/18 Cyclobenzaprine [Flexeril] 1 tab PO DAILY 10/25/17 02/01/18 Gabapentin [Neurontin] 1 cap PO QID 10/25/17 02/01/18 Hydrocodone/Acetaminophen 1 tab PO PRN PRN 10/25/17 02/01/18 [Hydrocodone-Acetamin 5-325 mg] Mirtazapine [Remeron] 1 tab PO HS 10/25/17 02/01/18 Naproxen [Naproxen] 1 tab PO PRN PRN 10/25/17 02/01/18 Omeprazole [Omeprazole] 1 cap PO BID 10/25/17 02/01/18 Vortioxetine Hydrobromide 1 tab PO DAILY 10/25/17 02/01/18 [Trintellix] Amitriptyline [Elavil] 50 mg PO DAILY 02/01/18 02/01/18 Review of Systems - Review of Systems Systems not reviewed;Unavailable: Language Barrier (pulley mortiser operator is present) Constitutional: absent: Fevers Respiratory: absent: SOB Cardiovascular: absent: Chest Pain Gastrointestinal: Abdominal Pain, Constipation, Nausea, Appetite Changes. absent: Diarrhea, Vomiting, Hematochezia, Hematemesis, Food Intolerance Genitourinary Female: absent: Dysuria, Frequency Musculoskeletal: Back Pain Skin: absent: Rash Neurological: absent: Headache, Dizziness, Focal Weakness Endocrine: absent: Polyuria Hemo/Lymphatic: absent: Easy Bleeding Psychiatric: absent: Depression Physical Exam Vital Signs Reviewed: Yes Vital Signs Temp Pulse Resp BP Pulse Ox 02/08/18 22:53 98.1 F 70 19 128/71 100 02/08/18 20:25 98.1 F 68 19 180/90 H 100 02/08/18 16:58 99 F 87 18 108/64 97 Temperature: Afebrile Appearance: Positive for: Uncomfortable Pain Distress: Moderate Mental Status: Positive for: Alert and Oriented X 3 - Systems Exam Head: Present: Atraumatic Pupils: Present: PERRL Extroacular Muscles: Present: EOMI Mouth: Present: Moist Mucous Membranes Pharnyx: No: ERYTHEMA Neck: Present: Normal Range of Motion Respiratory/Chest: Present: Clear to Auscultation. No: Respiratory Distress Cardiovascular: Present: Regular Rate and Rhythm Abdomen: Present: Tenderness, Distention. No: Peritoneal Signs, Rebound, Guarding Rectal: Present: Other (rectal exam performed with tech Ladonna box worker, there is no bloody stool or tender external masses palpated) Breast/Axillary: No: Erythema Back: Present: CVA Tenderness. No: Midline Tenderness Upper Extremity: No: Cyanosis Lower Extremity: Present: NORMAL PULSES, Neurovascularly Intact. No: Edema Neurological: Present: Motor Func Grossly Intact, Normal Sensory Function Skin: Present: Warm Psychiatric: Present: Alert, Normal Insight, Normal Concentration Medical Decision Making ED Course and Treatment: Patient on examination is noted to have some abdominal distension. Mild diffuse pain. No bowel movement reported for 4-5 days. There is flank pain noted with some cva tenderness. I feel pain likely secondary to constipation exacerbated by recent hemorrhoid surgery. Cannot exclude uti or pyelo, will medicate, re-exam. IV fluids ordered. Toradol ordered. AXR reveals large amount of stool, no obstruction or free air noted. 02/08/18 21:58 US Abdomen Complete EXAM DATE/TIME: 02/08/2018 8:23 PM CLINICAL HISTORY: 58 years old, female; Pain; Abdominal pain; Generalized; Additional info: Upper abdominal pain TECHNIQUE: Real-time ultrasound of the abdomen with image documentation. COMPARISON: US RENAL 12/29/2015 2:31 PM FINDINGS: Liver: Hepatic steatosis. Gallbladder: Cholecystectomy Common bile duct: Measures 4.2 mm. Pancreas: Normal. No ductal dilation. Right kidney: Normal. No hydronephrosis. Left kidney: Normal. No hydronephrosis. Spleen: Normal. No splenomegaly. Aorta: Normal. No aneurysm. Inferior vena cava: Normal. IMPRESSION: Hepatic steatosis. Labs reviewed. Patient observed in ED. Patient with persistent pain after period of observation. Case d/w covering physician for her PMD Dr. Barnes, she requests admission to hospitalist for observation, serial exams. UTI noted. Patient will be initiated on antibiotics as ddx includes also pyelnephritis with right sided cva tenderness. 02/08/18 22:53 02/08/18 22:55 Narcotic use avoided as patient has hx of prior opiate use and presents with constipation, I feel this may exacerbate her current symptoms. As she has persistent pain I reviewed her prior visits where she has recently had ct abdomen/pelvis. I reviewed with her in Romanian risks of repeated CT abdomen/pelvis. Will initiate iv antibiotics, ddx constipation, pyelonephritis, uti, abdominal pain. 02/08/18 23:09 Re-exam. Persistent cva tenderness. Admitting resident ramo. Dr. Cherie ralph. Admitting resident made aware of admission. - Lab Interpretations Lab Results: 02/08/18 18:39 02/08/18 18:39 Lab Results 02/08/18 20:30: Urine Color Yellow, Urine Appearance Sl cloudy, Urine pH 8.0, Ur Specific [place] 1.010, Urine Protein Negative, Urine Glucose (UA) Negative, Urine Ketones Negative, Urine Blood Small H, Urine Nitrate Negative, Urine Bilirubin Negative, Urine Urobilinogen 0.2, Ur Leukocyte Esterase Moderate H, Urine RBC 1 - 3, Urine WBC 1 - 3, Ur Epithelial Cells 0 - 2 02/08/18 18:39: Sodium 142, Potassium 4.6, Chloride 102, Carbon Dioxide 32, Anion Gap 12, BUN 7, Creatinine 0.6 L, Est GFR ( Amer) > 60, Est GFR (Non -Af Amer) > 60, Random Glucose 110, Calcium 9.6, Total Bilirubin 0.9, AST 28, ALT 23, Alkaline Phosphatase 91, Total Protein 8.5 H, Albumin 4.5, Globulin 4.0 , Albumin/Globulin Ratio 1.1, Amylase 127 H, Lipase 48 02/08/18 18:39: PT 12.0, INR 1.05, APTT 30.5 02/08/18 18:39: WBC 8.2 D, RBC 4.09, Hgb 12.9, Hct 38.5, MCV 94.1, MCH 31.5, MCHC 33.5, RDW 13.4, Plt Count 237, MPV 10.0, Gran % 50.7, Lymph % (Auto) 41.2 H , [place] % (Auto) 6.9 H, Eos % (Auto) 1.0 L, Baso % (Auto) 0.2, Gran # 4.17, Lymph # (Auto) 3.4, [place] # (Auto) 0.6, Eos # (Auto) 0.1, Baso # (Auto) 0.02 - RAD Interpretation Radiology Orders: 02/08/18 17:58 ABD 2 VIEWS (FLAT/UP OR DECUB) [RAD] Stat 02/08/18 20:23 ABDOMEN COMPLETE [US] Stat - Medication Orders Current Medication Orders: Sodium Chloride (Sodium Chloride 0.9%) 1,000 mls @ 100 mls/hr IV .Q10H LESLY Last Admin: 02/08/18 18:30 Dose: 100 mls/hr eMAR Start Stop Document 02/08/18 18:30 OCS (Rec: 02/08/18 18:30 [id number] Intravenous Solution Start Date 02/08/18 Start Time 18:30 Ceftriaxone Sodium (Rocephin 1 Gram Ivpb) 1 gm in 100 mls @ 200 mls/hr IVPB ONCE STA PRN Reason: Protocol Stop: 02/08/18 23:23 Discontinued Medications Famotidine (Pepcid) 20 mg IVP STAT STA Stop: 02/08/18 17:27 Last Admin: 02/08/18 18:30 Dose: 20 mg IVP Administration Document 02/08/18 18:30 OCS (Rec: 02/08/18 18:30 [id number] Charges for Administration # of IVP Administrations 1 Ketorolac Tromethamine (Toradol) 30 mg IVP ONCE ONE Stop: 02/08/18 20:19 Last Admin: 02/08/18 20:27 Dose: 30 mg MAR Pain Assessment Document 02/08/18 20:27 OCS (Rec: 02/08/18 20:28 [id number] Pain Reassessment Is this a pain reassessment? Yes Sleep Is patient sleeping during reassessment? No Presence of Pain Presence of Pain Yes Pain Scale Used Pain Scale Used Numeric Location Pain Location Body Site Abdomen Description Description Constant Intensity of Pain at present 10 Pain Behavior Moaning Crying Irritability Facial Grimacing Aggravating Factors ADL's IVP Administration Document 02/08/18 20:27 OCS (Rec: 02/08/18 20:28 [id number]) Charges for Administration # of IVP Administrations 1 Magnesium Hydroxide (Milk Of Magnesia) 30 ml PO STAT STA Stop: 02/08/18 18:06 Last Admin: 02/08/18 18:35 Dose: 30 ml Disposition/Present on Arrival - Present on Arrival Any Indicators Present on Arrival: No History of DVT/PE: No History of Uncontrolled Diabetes: No Urinary Catheter: No History of Decub. Ulcer: No History Surgical Site Infection Following: None - Disposition Have Diagnosis and Disposition been Completed?: Yes Diagnosis: Abdominal pain, Urinary tract infection, Back pain Disposition: HOSPITALIZED Disposition Time: 22:54 Patient Plan: Observation Patient Problems: Current Active Problems Problem Status Onset Abdominal pain Acute Condition: FAIR Forms: [employer] Apps (Yakut)
[2018-02-08] MEDS ORDERED: cefTRIAXone 1 gm 1 GM/100 ML BAG IVPB STA (22:54)
--- NOTE | 2018-02-09 01:43 | CP.PCM.HP ---
<Justin Bender - Last Filed: 02/09/18 07:12> History of Present Illness - History of Present Illness History of Present Illness: Justin Napoleon DO PGY-1, H&P for hospitalist CC: abdominal pain This is a 58 year old macedonian-speaking female with PMH of UTI, constipation, chronic back pain with herniated discs, kidney stones, depression who presents to the ED due to abdominal pain and constipation for the past 2 days. Pt underwent a hemorrhoidectomy [address] Hill at . Since then, pt has had decreased appetite, diffuse abdominal pain with nausea with one episode of vomiting today, nonbloody. Pt has not had a bowel movement for the past 4 days. Pt also reports hematuria that is being manage by Dr. Jaguar Marcus, but endorses tactile fevers with chills and pain on urination. Pt denies dizziness, chest pain, shortness of breath, leg pain or swelling. A 12-point ROS was reviewed and is otherwise unremarkable. Urology: Aubrie Marcus PMH: UTI, constipation, chronic back pain with herniated discs, kidney stones, depression PSH: cholecystectomy (unable to recall year) Meds: Milk of magnesia, Tramadol, Amtriptyline 50 mg dialy, Percocet 5/325 as needed, Trintellix 10 mg daily, Mitrazapine 45 mg at nightime, Naproxen 250 mg as needed, Flexeril 5 mg TID, Neurontin 600 mg TID Allx: NKDA FHx: Cancer in her mother (unable to recall which cancer) Social Hx: denies etoh use, smoking history, illicit drug use Present on Admission - Present on Admission Any Indicators Present on Admission: No Review of Systems - Review of Systems All systems: reviewed and no additional remarkable complaints except (as per HPI ) Past Patient History - Infectious Disease Hx of Infectious Diseases: None - Tetanus Immunizations Tetanus Immunization: Unknown - Past Medical History & Family History Past Medical History?: Yes - Past Social History Smoking Status: Never Smoked - CARDIAC Hx Cardiac Disorders: Yes Hx Hypertension: Yes (?) - NEUROLOGICAL Hx Neurological Disorder: No Hx Migraine: Yes - RENAL Hx Chronic Kidney Disease: Yes (RENAL COLIC,ABDOMINOPLASTY-"BLADDER SX") Hx Kidney Stones: Yes - MUSCULOSKELETAL/RHEUMATOLOGICAL Hx Musculoskeletal Disorders: Yes Hx Back Pain: Yes Hx Falls: No Hx Herniated Disk: Yes (lumbar cervical) - GASTROINTESTINAL Hx Gastrointestinal Disorders: Yes (COLITIS.POLYPS REMOVED) Hx Hemorrhoids: Yes - GENITOURINARY/GYNECOLOGICAL Hx Hematuria: Yes (01-14-15) - PSYCHIATRIC Hx Anxiety: No Hx Bipolar Disorder: No Hx Depression: No Hx Emotional Abuse: No Hx Hallucinations: No Hx Panic Symptoms: No Hx Post Traumatic Stress Disorder: No Hx Psychosis: No Hx Physical Abuse: No Hx Schizophrenia: No Hx Sexual Abuse: No Hx Substance Use: No - SURGICAL HISTORY Other/Comment: Abdominoplasty, "bladder surgery" - ANESTHESIA Hx Anesthesia: Yes Hx Anesthesia Reactions: No Hx Malignant Hyperthermia: No Meds Allergies/Adverse Reactions: Allergies Allergy/AdvReac Type Severity Reaction Status Date / Time No Known Allergies Allergy Verified 02/08/18 17:00 Physical Exam - Constitutional Appears: Non-toxic, No Acute Distress - Head Exam Head Exam: ATRAUMATIC, NORMAL INSPECTION - Eye Exam Eye Exam: EOMI, PERRL - ENT Exam ENT Exam: Mucous Membranes Moist - Neck Exam Neck exam: Positive for: Normal Inspection - Respiratory Exam Respiratory Exam: Clear to Auscultation Bilateral, NORMAL BREATHING PATTERN. absent: Rales, Rhonchi, Wheezes - Cardiovascular Exam Cardiovascular Exam: REGULAR RHYTHM, +S1, +S2 - GI/Abdominal Exam GI & Abdominal Exam: Normal Bowel Sounds, Soft, Tenderness (diffuse abdominal tenderness). absent: Mass, Organomegaly - Rectal Exam Rectal Exam: absent: Black Stool, Bloody Stool, Hemorrhoids, Fecal Impaction Additional comments: (-) gross blood, (+) scant blood on glove noted after examination, (-) fissures , (+) FOBT done at bedside - Extremities Exam Extremities exam: Positive for: normal inspection, pedal pulses present. Negative for: pedal edema, tenderness - Back Exam Back exam: CVA tenderness (L), CVA tenderness (R), NORMAL INSPECTION, paraspinal tenderness (thoracic and lumbar paravertebral tenderness). absent: vertebral tenderness - Neurological Exam Neurological exam: Alert - Psychiatric Exam Psychiatric exam: Normal Affect, Normal Mood - Skin Skin Exam: Dry, Normal Color, Warm Results - Vital Signs Recent Vital Signs: Last Vital Signs Temp 98.1 F 02/09/18 00:09 Pulse 60 09/22/18 00:09 Resp 19 02/09/18 00:09 BP 135/73 02/09/18 00:09 Pulse Ox 100 02/09/18 00:09 - Labs Result Diagrams: 02/08/18 18:39 02/08/18 18:39 Assessment & Plan - Assessment and Plan (Free Text) Assessment: This is a 58 year old Czech-speaking female with PMH of UTI, constipation, chronic back pain with herniated discs, kidney stones, depression who presents to the ED due to abdominal pain and constipation for the past 2 days. Pt underwent a hemorrhoidectomy [address] Hill at . Plan: Abdominal pain; likely due to constipation - Abdominal US shows Hepatic steatosis. - Abdominal XR shows Stool present throughout the colon and rectum, correlate with history of constipation/fecal impaction. - Abdominal/pelvic CT with IV contrast (12/06/17) was unremarkable, with no acute findings except findings consistent with constipation without fecal impaction. - Tylenol 650 mg Q6H, Toradol 30 mg IVP Q4 PRN for pain - Miralax 1 packet BID - CLD for now; NS IVF at 125 mL/hr Rectal pain; s/p hemorroidectomy - Bedside FOBT is positive, (see rectal examination) - Sitz baths twice a day, Uro-jet BID for pain relief UTI - UTI on UA - F/u urine culture and sensitivity - Continue Rocephin started in ED Hx of Hematuria - Small blood noted on UA - Pt is being followed by Dr. Reed Marcus, with f/u appointment scheduled in early february - Will continue to treat UTI Hx of chronic back pain secondary to DJD - continue Gabapentin 600 mg PO TID - Valium 2 mg BID PRN for pain - Incidental finding of Spondylosis on abdominal XR - Lumbar spine MRI (2015) shows DJD at L4-L5, L5-S1 Hx of Depression - Continue home Trintellix, Remeron - F/u TSH/T4 PPX/Diet - Pepcid for GI, SCD for DVT - CLD Case was reviewed and discussed with attending physician, Dr. Crespo <Sherley Crespo - Last Filed: 02/09/18 18:57> Results - Vital Signs Recent Vital Signs: Last Vital Signs Temp 98.4 F 02/09/18 08:12 Pulse 69 09/22/18 08:12 Resp 20 02/09/18 08:12 BP 116/68 02/09/18 08:12 Pulse Ox 99 02/09/18 08:12 - Labs Result Diagrams: 02/09/18 07:30 02/09/18 07:30 Labs: Laboratory Results - last 24 hr 02/09/18 02/09/18 02/09/18 07:30 07:30 07:30 WBC 9.2 RBC 4.21 Hgb 13.1 Hct 39.6 MCV 94.1 MCH 31.1 MCHC 33.1 RDW 13.4 Plt Count 251 MPV 10.1 Gran % 41.9 L Lymph % (Auto) 50.5 H [place] % (Auto) 6.4 H Eos % (Auto) 1.1 L Baso % (Auto) 0.1 Gran # 3.86 Lymph # (Auto) 4.7 H [place] # (Auto) 0.6 Eos # (Auto) 0.1 Baso # (Auto) 0.01 Sodium 141 Potassium 3.9 Chloride 105 Carbon Dioxide 28 Anion Gap 12 BUN 5 L Creatinine 0.6 L Est GFR ( Amer) > 60 Est GFR (Non-Af Amer) > 60 Random Glucose 109 Calcium 9.0 Phosphorus 3.6 Magnesium 2.5 H Total Bilirubin 1.0 AST 27 ALT 14 Alkaline Phosphatase 96 Total Protein 8.2 Albumin 4.4 Globulin 3.8 Albumin/Globulin Ratio 1.2 Free T4 1.23 TSH 3rd Generation 3.55 Attending/Attestation - Attestation I have personally seen and examined this patient.: Yes I have fully participated in the care of the patient.: Yes I have reviewed all pertinent clinical information: Yes
[2018-02-09] MEDS: Sodium Chloride 0.9% 1,000 ML IV SCH ×3 (02:19→20:17)
[2018-02-09] MEDS ORDERED: Pneumococcal 23-Valent Vaccine IM ONE (02:51)
[2018-02-09 08:01] LABS: BASO # 0.01 K/mm3 (0.0-2.0); BASO % 0.1 % (0.0-3.0); EOS # 0.1 (0.0-0.7); EOS % 1.1 % (1.5-5.0); GRAN # 3.86 (1.4-6.5); GRAN % 41.9 % (50.0-68.0); HEMOGLOBIN 13.1 g/dL (12.0-16.0); LYMPH # 4.7 (1.2-3.4); LYMPH % 50.5 % (22.0-35.0); MEAN CELL VOLUME 94.1 fl (80.0-105.0); MEAN CORPUSCULAR HEMOGLOBIN 31.1 pg (25.0-35.0); MEAN CORPUSCULAR HGB CONC 33.1 g/dl (31.0-37.0); MEAN PLATELET VOLUME 10.1 fl (7.0-11.0); MONO # 0.6 (0.1-0.6); MONO % 6.4 % (1.0-6.0); RBC 4.21 10^6/uL (3.5-6.1); RED CELL DISTRIBUTION WIDTH 13.4 % (11.5-14.5); WHITE BLOOD COUNT 9.2 10^3/ul (4.5-11.0)
[2018-02-09 08:32] LABS: ALB/GLOB RATIO 1.2 (1.1-1.8); ALBUMIN 4.4 g/dL (3.0-4.8); ALT/SGPT 14 U/L (7-56); AST/SGOT 27 U/L (14-36); BLOOD UREA NITROGEN 5 mg/dL (7-21); GFR NON-AFRICAN AMERICAN > 60
[2018-02-09 08:54] LABS: FREE T4 1.23 ng/dL (0.78-2.19)
[2018-02-09] MEDS: Lidocaine 2% Jelly (Uro-Jet) TOP SCH ×3 (10:00→20:18)
[2018-02-09] MEDS: VORTIOXETINE HYDROBROMIDE PO SCH (10:00)
[2018-02-09] MEDS: POLYETHYLENE GLYCOL 3350 17 GM/Dose PACKET PO SCH ×2 (10:53→17:29)
[2018-02-09] MEDS: cefTRIAXone 1 gm 1 GM/100 ML BAG IVPB SCH (10:54)
--- NOTE | 2018-02-09 12:06 | US ---
Date of service: 02/08/2018 HISTORY: upper abdominal pain COMPARISON: None. TECHNIQUE: Sonographic evaluation of the abdomen. FINDINGS: LIVER: Measures 13.4 cm. Diffusely increased echogenicity of the liver parenchyma. Consistent with fatty infiltration. Smooth contour. No mass. No biliary ductal dilatation. GALLBLADDER: Status post cholecystectomy COMMON BILE DUCT: Measures 4 mm. No stones. No dilatation. PANCREAS: Unremarkable as visualized. No mass. No ductal dilatation. RIGHT KIDNEY: Measures 9.3cm. Normal echogenicity. No calculus, mass, or hydronephrosis. LEFT KIDNEY: Measures 9.4cm. Normal echogenicity. No calculus, mass, or hydronephrosis. SPLEEN: Normal in size and contour. No mass. AORTA: No aneurysmal dilatation. IVC: Unremarkable. OTHER FINDINGS: None. IMPRESSION: Mild fatty infiltration of the liver. Status post cholecystectomy. No additional abnormality. The preliminary findings for this examination were reported by [facility] at 9:20 p.m. on 02/08/2018. There is concurrence of this report with the preliminary findings.
--- NOTE | 2018-02-09 13:54 | RAD ---
Date of service: 02/08/2018 HISTORY: abdominal pain COMPARISON: No prior. FINDINGS: BOWEL: No evidence of bowel obstruction. Moderate retained feces in descending and rectosigmoid colon. No masses or abnormal calcifications. Surgical clips in right upper quadrant consistent with prior cholecystectomy. No free intraperitoneal air. BONES: Normal. OTHER FINDINGS: None. IMPRESSION: Retained stool.
--- NOTE | 2018-02-09 18:25 | CP.PCM.CON ---
History of Present Illness - History of Present Illness History of Present Illness: General Surgery Consult Note for Dr. Carter 58F no PMH presents 2 days s/p hemorrhoidectomy at [facility]. She reports constipation and anal pain. She reports she was not prescribed any medication after her procedure. Aside from constipation she denies abdominal pain. She denies any fever chills chest pain nausea vomiting or diarrhia. PMH: Denies PSH: Hemorrhoidectomy, lap ofelia ALL: NKDA Social: Denies Vices Review of Systems - Review of Systems All systems: reviewed and no additional remarkable complaints except Review of Systems: Anal pain and blood streaks on toilet paper Past Patient History - Infectious Disease Hx of Infectious Diseases: None - Tetanus Immunizations Tetanus Immunization: Unknown - Past Medical History & Family History Past Medical History?: Yes - Past Social History Smoking Status: Never Smoked - CARDIAC Hx Cardiac Disorders: Yes Hx Hypertension: Yes (?) - NEUROLOGICAL Hx Neurological Disorder: No Hx Migraine: Yes - RENAL Hx Chronic Kidney Disease: Yes (RENAL COLIC,ABDOMINOPLASTY-"BLADDER SX") Hx Kidney Stones: Yes - MUSCULOSKELETAL/RHEUMATOLOGICAL Hx Musculoskeletal Disorders: Yes Hx Back Pain: Yes Hx Falls: No Hx Herniated Disk: Yes (lumbar cervical) - GASTROINTESTINAL Hx Gastrointestinal Disorders: Yes (COLITIS.POLYPS REMOVED) Hx Hemorrhoids: Yes - GENITOURINARY/GYNECOLOGICAL Hx Hematuria: Yes (01-14-15) - PSYCHIATRIC Hx Anxiety: No Hx Bipolar Disorder: No Hx Depression: No Hx Emotional Abuse: No Hx Hallucinations: No Hx Panic Symptoms: No Hx Post Traumatic Stress Disorder: No Hx Psychosis: No Hx Physical Abuse: No Hx Schizophrenia: No Hx Sexual Abuse: No Hx Substance Use: No - SURGICAL HISTORY Other/Comment: Abdominoplasty, "bladder surgery" - ANESTHESIA Hx Anesthesia: Yes Hx Anesthesia Reactions: No Hx Malignant Hyperthermia: No Meds Allergies/Adverse Reactions: Allergies Allergy/AdvReac Type Severity Reaction Status Date / Time No Known Allergies Allergy Verified 02/08/18 17:00 - Medications Medications: Current Medications Acetaminophen (Tylenol 325mg Tab) 650 mg PO Q6H [facility] Last Admin: 02/09/18 14:14 Dose: 650 mg Amitriptyline HCl (Elavil) 50 mg PO DAILY [facility] Last Admin: 02/09/18 10:53 Dose: 50 mg Diazepam (Valium) 2 mg PO BID PRN; Protocol PRN Reason: Pain, moderate (4-7) Famotidine (Pepcid) 20 mg PO 1000,2200 [facility] Last Admin: 02/09/18 10:53 Dose: 20 mg Gabapentin (Neurontin) 600 mg PO TID [facility] PRN Reason: Protocol Last Admin: 02/09/18 17:29 Dose: Not Given Ceftriaxone Sodium (Rocephin 1 Gram Ivpb) 1 gm in 100 mls @ 100 mls/hr IVPB DAILY [facility] PRN Reason: Protocol Last Admin: 02/09/18 10:54 Dose: 100 mls/hr Sodium Chloride (Sodium Chloride 0.9%) 1,000 mls @ 125 mls/hr IV .Q8H [facility] Last Admin: 02/09/18 09:30 Dose: 125 mls/hr Ketorolac Tromethamine (Toradol) 30 mg IVP Q6H PRN PRN Reason: Pain, moderate (4-7) Last Admin: 02/09/18 07:11 Dose: 30 mg Lidocaine HCl (Xylocaine 2% (Uro-Jet)) 0 ea TOP TID [facility] Last Admin: 02/09/18 14:00 Dose: Not Given Mirtazapine (Remeron) 45 mg PO [facility] Vortioxetine Hydrobromide [ Trintellix] (Home Med) 1 tab PO DAILY [facility] Last Admin: 02/09/18 10:00 Dose: Not Given Ondansetron HCl (Zofran Inj) 4 mg IVP Q6H PRN PRN Reason: Nausea/Vomiting Polyethylene Glycol (Miralax) 17 gm PO BID [facility] Last Admin: 02/09/18 17:29 Dose: 17 gm Physical Exam - Constitutional Appears: Non-toxic, No Acute Distress - Head Exam Head Exam: ATRAUMATIC, NORMOCEPHALIC - Eye Exam Eye Exam: EOMI, Normal appearance - Respiratory Exam Respiratory Exam: NORMAL BREATHING PATTERN - Cardiovascular Exam Cardiovascular Exam: +S1, +S2 - GI/Abdominal Exam GI & Abdominal Exam: Soft. absent: Distended, Firm, Guarding, Rebound, Rigid, Tenderness - Rectal Exam Additional comments: Solid stool protruding from anus, no blood, pt refusing rectal exam - Neurological Exam Neurological exam: Alert, Oriented x3 - Psychiatric Exam Psychiatric exam: Normal Affect, Normal Mood - Skin Skin Exam: Dry, Intact Results - Vital Signs Recent Vital Signs: Last Vital Signs Temp 98.4 F 02/09/18 08:12 Pulse 69 02/09/18 08:12 Resp 20 02/09/18 08:12 BP 116/68 02/09/18 08:12 Pulse Ox 99 02/09/18 08:12 - Labs Result Diagrams: 02/09/18 07:30 02/09/18 07:30 Labs: Laboratory Results - last 24 hr 02/09/18 02/09/18 02/09/18 07:30 07:30 07:30 WBC 9.2 RBC 4.21 Hgb 13.1 Hct 39.6 MCV 94.1 MCH 31.1 MCHC 33.1 RDW 13.4 Plt Count 251 MPV 10.1 Gran % 41.9 L Lymph % (Auto) 50.5 H [place] % (Auto) 6.4 H Eos % (Auto) 1.1 L Baso % (Auto) 0.1 Gran # 3.86 Lymph # (Auto) 4.7 H [place] # (Auto) 0.6 Eos # (Auto) 0.1 Baso # (Auto) 0.01 Sodium 141 Potassium 3.9 Chloride 105 Carbon Dioxide 28 Anion Gap 12 BUN 5 L Creatinine 0.6 L Est GFR ( Amer) > 60 Est GFR (Non-Af Amer) > 60 Random Glucose 109 Calcium 9.0 Phosphorus 3.6 Magnesium 2.5 H Total Bilirubin 1.0 AST 27 ALT 14 Alkaline Phosphatase 96 Total Protein 8.2 Albumin 4.4 Globulin 3.8 Albumin/Globulin Ratio 1.2 Free T4 1.23 TSH 3rd Generation 3.55 Assessment & Plan - Assessment and Plan (Free Text) Assessment: 58F S/P hemorrhoidectomy Continue medical management Followup with operating surgeon Discussed with Dr. Raul Moon PGY3
[2018-02-10] MEDS: Sodium Chloride 0.9% 1,000 ML IV SCH ×2 (01:39→20:39)
[2018-02-10 08:20] LABS: BASO # 0.02 K/mm3 (0.0-2.0); BASO % 0.3 % (0.0-3.0); EOS # 0.1 (0.0-0.7); GRAN # 3.14 (1.4-6.5); GRAN % 51.8 % (50.0-68.0); HEMOGLOBIN 11.9 g/dL (12.0-16.0); LYMPH # 2.4 (1.2-3.4); LYMPH % 39.1 % (22.0-35.0); MEAN CELL VOLUME 94.6 fl (80.0-105.0); MEAN CORPUSCULAR HEMOGLOBIN 30.8 pg (25.0-35.0); MEAN CORPUSCULAR HGB CONC 32.6 g/dl (31.0-37.0); MEAN PLATELET VOLUME 10.1 fl (7.0-11.0); MONO # 0.4 (0.1-0.6); MONO % 6.8 % (1.0-6.0); RBC 3.86 10^6/uL (3.5-6.1); RED CELL DISTRIBUTION WIDTH 13.3 % (11.5-14.5); WHITE BLOOD COUNT 6.1 10^3/ul (4.5-11.0)
[2018-02-10 08:53] LABS: ALB/GLOB RATIO 1.1 (1.1-1.8); ALBUMIN 3.7 g/dL (3.0-4.8); ALT/SGPT 20 U/L (7-56); AST/SGOT 26 U/L (14-36); BLOOD UREA NITROGEN 2 mg/dL (7-21); CALCIUM 9.1 mg/dL (8.4-10.5); GFR NON-AFRICAN AMERICAN > 60
[2018-02-10] MEDS: VORTIOXETINE HYDROBROMIDE PO SCH (10:26)
[2018-02-10] MEDS: cefTRIAXone 1 gm 1 GM/100 ML BAG IVPB SCH (10:26)
[2018-02-10] MEDS: Lidocaine 2% Jelly (Uro-Jet) TOP SCH ×3 (10:27→20:39)
[2018-02-10] MEDS: POLYETHYLENE GLYCOL 3350 17 GM/Dose PACKET PO SCH ×2 (10:30→18:13)
[2018-02-10 13:25] LABS: PH,URINE 6.5 (4.7-8.0); URINE APPEARANCE CLEAR (CLEAR); URINE BILIRUBIN NEGATIVE (NEGATIVE); URINE BLOOD SMALL (NEGATIVE); URINE COLOR YELLOW (YELLOW); URINE GLUCOSE (UA) NEGATIVE (NEGATIVE); URINE LEUKOCYTE ESTERASE SMALL Leu/uL (NEGATIVE); URINE PROTEIN NEGATIVE mg/dL (<30 mg/dL); URINE UROBILINOGEN 0.2 E.U./dL (<1 E.U./dL)
[2018-02-10 13:27] LABS: URINE BACTERIA MOD (NEG)
[2018-02-10] MEDS ORDERED: Magnesium Citrate Oral SOL (300 ml) PO ONE (15:46)
--- NOTE | 2018-02-10 17:18 | CT ---
Date of service: 02/10/2018 PROCEDURE: CT Abdomen and Pelvis without intravenous contrast HISTORY: abdominal pain COMPARISON: 12/06/2017 TECHNIQUE: Without contrast.. Contrast dose: 0 Radiation dose: Total exam DLP = 754.92 mGy-cm. This CT exam was performed using one or more of the following dose reduction techniques: Automated exposure control, adjustment of the mA and/or kV according to patient size, and/or use of iterative reconstruction technique. FINDINGS: LOWER THORAX: Minimal linear scar/atelectasis in left lower lobe. No infiltrate/effusion. LIVER: Unremarkable. No gross lesion or ductal dilatation. GALLBLADDER AND BILE DUCTS: Cholecystectomy. PANCREAS: Unremarkable. No gross lesion or ductal dilatation. SPLEEN: Unremarkable. ADRENALS: Unremarkable. No mass. KIDNEYS AND URETERS: Unremarkable. No hydronephrosis. No solid mass. VASCULATURE: Unremarkable. No aortic aneurysm. BOWEL: Unremarkable. No obstruction. No gross mural thickening. APPENDIX: Unremarkable. Normal appendix. PERITONEUM: Unremarkable. No free fluid. No free air. LYMPH NODES: Unremarkable. No enlarged lymph nodes. BLADDER: Bladder distended to a volume of approximately 100 cc. No bladder wall thickening. REPRODUCTIVE: Uterus elongated and a faced by distended bladder. BONES: No acute fracture. OTHER FINDINGS: None. IMPRESSION: Distended urinary bladder. Status post cholecystectomy. No additional abnormality.
[2018-02-10] MEDS ORDERED: POLYETHYLENE GLYCOL 3350 17 GM/Dose PACKET PO STA (20:31)
--- NOTE | 2018-02-11 06:36 | CP.PCM.PN ---
Subjective - Date & Time of Evaluation Date of Evaluation: 02/10/18 Time of Evaluation: 07:35 - Subjective Subjective: Patient seen and examined at bedside. Patient states abdominal pain has improved slightly. Explained to patient that she will have to follow up with her surgeon from [facility] however as per gen surg, pain is to be expected for at least a week after procedure. Patient still had not made a bowel movement. Objective - Vital Signs/Intake and Output Vital Signs (last 24 hours): Temp Pulse Resp BP Pulse Ox 98.7 F 67 18 143/84 100 02/10/18 21:52 02/10/18 21:52 02/10/18 21:52 02/10/18 21:52 02/10/18 21:52 Intake and Output: 02/10/18 02/11/18 18:59 06:59 Intake Total 480 840 Output Total 400 Balance 80 840 - Medications Medications: Current Medications Acetaminophen (Tylenol 325mg Tab) 650 mg PO Q6H [facility] Last Admin: 02/11/18 02:24 Dose: Not Given Amitriptyline HCl (Elavil) 50 mg PO DAILY [facility] Last Admin: 02/10/18 10:29 Dose: 50 mg Diazepam (Valium) 2 mg PO BID PRN; Protocol PRN Reason: Pain, moderate (4-7) Famotidine (Pepcid) 20 mg PO 1000,2200 [facility] Last Admin: 02/10/18 21:29 Dose: 20 mg Gabapentin (Neurontin) 300 mg PO BID [facility] PRN Reason: Protocol Last Admin: 02/10/18 17:25 Dose: 300 mg Ceftriaxone Sodium (Rocephin 1 Gram Ivpb) 1 gm in 100 mls @ 100 mls/hr IVPB DAILY [facility] PRN Reason: Protocol Last Admin: 02/10/18 10:26 Dose: 100 mls/hr Ketorolac Tromethamine (Toradol) 30 mg IVP Q6H PRN PRN Reason: Pain, moderate (4-7) Last Admin: 02/11/18 05:36 Dose: 30 mg Lidocaine HCl (Xylocaine 2% (Uro-Jet)) 0 ea TOP TID [facility] Last Admin: 02/10/18 20:39 Dose: Not Given Mirtazapine (Remeron) 45 mg PO HS [facility] Last Admin: 02/10/18 21:30 Dose: 45 mg Vortioxetine Hydrobromide [ Trintellix] (Home Med) 1 tab PO DAILY [facility] Last Admin: 02/10/18 10:26 Dose: Not Given Ondansetron HCl (Zofran Inj) 4 mg IVP Q6H PRN PRN Reason: Nausea/Vomiting Polyethylene Glycol (Miralax) 17 gm PO BID [facility] Last Admin: 02/10/18 18:13 Dose: Not Given - Labs Labs: 02/10/18 07:30 02/10/18 07:30 PT 12.0 SECONDS (9.4-12.5) 02/08/18 18:39 INR 1.05 02/08/18 18:39 APTT 30.5 Seconds (25.1-36.5) 02/08/18 18:39 - Constitutional Appears: Non-toxic - Head Exam Head Exam: ATRAUMATIC, NORMAL INSPECTION, NORMOCEPHALIC - Eye Exam Eye Exam: EOMI, Normal appearance - ENT Exam ENT Exam: Mucous Membranes Moist - Respiratory Exam Respiratory Exam: Clear to Ausculation Bilateral, NORMAL BREATHING PATTERN - Cardiovascular Exam Cardiovascular Exam: REGULAR RHYTHM, +S1, +S2 - GI/Abdominal Exam GI & Abdominal Exam: Soft, Normal Bowel Sounds - Extremities Exam Extremities Exam: Normal Inspection - Back Exam Back Exam: NORMAL INSPECTION - Neurological Exam Neurological Exam: Alert, Awake, Oriented x3 - Psychiatric Exam Psychiatric exam: Normal Affect, Normal Mood - Skin Skin Exam: Normal Color, Warm Assessment and Plan - Assessment and Plan (Free Text) Assessment: This is a 58 year old Bulgarian-speaking female with PMH of UTI, constipation, chronic back pain with herniated discs, kidney stones, depression who presents to the ED due to abdominal pain and constipation for the past 2 days. Pt underwent a hemorrhoidectomy [address] Hill at . Plan: Abdominal pain; likely due to constipation - Abdominal US shows Hepatic steatosis. - Abdominal XR shows Stool present throughout the colon and rectum, correlate with history of constipation/fecal impaction. - Abdominal/pelvic CT with IV contrast (12/06/17) was unremarkable, with no acute findings except findings consistent with constipation without fecal impaction. - Tylenol 650 mg Q6H, Toradol 30 mg IVP Q4 PRN for pain - Miralax 1 packet BID, will try lactulose and mag citrate as well. Discuss with surgery possible use of enema - Diet advanced to regular Rectal pain; s/p hemorroidectomy - Bedside FOBT is positive (patient had recent hemorrhoidectomy) - Sitz baths twice a day, Uro-jet BID for pain relief UTI - UTI on UA - Urine culture positive for gram negative rods - Continue Rocephin Hx of Hematuria - Small blood noted on UA - Pt is being followed by Dr. Reed Marcus, with f/u appointment scheduled in early february - Will continue to treat UTI Hx of chronic back pain secondary to DJD - continue Gabapentin 300 mg PO TID - Incidental finding of Spondylosis on abdominal XR - Lumbar spine MRI (2015) shows DJD at L4-L5, L5-S1 Hx of Depression - Continue home Trintellix, Remeron PPX/Diet - Pepcid for GI, SCD for DVT - CLD Case was reviewed and discussed with attending physician, Dr. Tomlinson
--- NOTE | 2018-02-11 08:41 | RAD ---
Date of service: 02/10/2018 HISTORY: abdominal pain COMPARISON: No prior. FINDINGS: BOWEL: Normal. No evidence of acute mechanical bowel obstruction. Moderate amount of stool seen within the distal large bowel. No free air. Metallic clips right upper quadrant of the abdomen consistent with prior cholecystectomy. BONES: Multilevel degenerative spondylosis of the lumbar spine. OTHER FINDINGS: Upper quadrant of the abdomen consistent with cholecystectomy IMPRESSION: No evidence of acute mechanical bowel obstruction. Findings suggest mild constipation.
[2018-02-11] MEDS: POLYETHYLENE GLYCOL 3350 17 GM/Dose PACKET PO SCH ×2 (10:49→17:44)
[2018-02-11] MEDS: cefTRIAXone 1 gm 1 GM/100 ML BAG IVPB SCH (10:50)
[2018-02-11] MEDS: Lidocaine 2% Jelly (Uro-Jet) TOP SCH ×3 (10:51→17:47)
[2018-02-11] MEDS: VORTIOXETINE HYDROBROMIDE PO SCH (10:51)
[2018-02-11] MEDS ORDERED: Magnesium Citrate Oral SOL (300 ml) PO ONE (12:38)
--- NOTE | 2018-02-11 14:20 | CP.PCM.PN ---
<Elvira Ramsay - Last Filed: 02/11/18 19:22> Subjective - Date & Time of Evaluation Date of Evaluation: 02/11/18 Time of Evaluation: 13:00 - Subjective Subjective: PGY-1 Elvira Ramsay Medicine Progress Note for Dr. Sifuentes's service Patient seen and examined at bedside. Patient complains of diffuse abdominal pain secondary to constipation. Patient states she is passing very little amounts of stool after extreme straining. Patient admits to nausea if she eats however denies any episodes of vomiting. Patient states she has burning sensation when she urinates but much decreased. Patient denies chest pain, sob, diarrhea, headache, dizziness, vomiting, lightheadedness, and weakness. Objective - Vital Signs/Intake and Output Vital Signs (last 24 hours): Temp Pulse Resp BP Pulse Ox 98.1 F 68 20 124/80 98 02/11/18 06:00 02/11/18 06:00 02/11/18 06:00 02/11/18 06:00 02/11/18 06:00 Intake and Output: 02/11/18 02/11/18 06:59 18:59 Intake Total 840 Balance 840 - Medications Medications: Current Medications Acetaminophen (Tylenol 325mg Tab) 650 mg PO Q6H [facility] Last Admin: 02/11/18 10:52 Dose: 650 mg Amitriptyline HCl (Elavil) 50 mg PO DAILY [facility] Last Admin: 02/11/18 10:49 Dose: 50 mg Diazepam (Valium) 2 mg PO BID PRN; Protocol PRN Reason: Pain, moderate (4-7) Famotidine (Pepcid) 20 mg PO 1000,2200 [facility] Last Admin: 02/11/18 10:49 Dose: 20 mg Gabapentin (Neurontin) 300 mg PO BID [facility] PRN Reason: Protocol Last Admin: 02/11/18 10:49 Dose: 300 mg Ceftriaxone Sodium (Rocephin 1 Gram Ivpb) 1 gm in 100 mls @ 100 mls/hr IVPB DAILY [facility] PRN Reason: Protocol Last Admin: 02/11/18 10:50 Dose: 100 mls/hr Ketorolac Tromethamine (Toradol) 30 mg IVP Q6H PRN PRN Reason: Pain, moderate (4-7) Last Admin: 02/11/18 05:36 Dose: 30 mg Lidocaine HCl (Xylocaine 2% (Uro-Jet)) 0 ea TOP TID [facility] Last Admin: 02/11/18 10:51 Dose: Not Given Mirtazapine (Remeron) 45 mg PO HS [facility] Last Admin: 02/10/18 21:30 Dose: 45 mg Vortioxetine Hydrobromide [ Trintellix] (Home Med) 1 tab PO DAILY [facility] Last Admin: 02/11/18 10:51 Dose: Not Given Ondansetron HCl (Zofran Inj) 4 mg IVP Q6H PRN PRN Reason: Nausea/Vomiting Polyethylene Glycol (Miralax) 17 gm PO BID [facility] Last Admin: 02/11/18 10:49 Dose: 17 gm - Labs Labs: 02/10/18 07:30 02/10/18 07:30 PT 12.0 SECONDS (9.4-12.5) 02/08/18 18:39 INR 1.05 02/08/18 18:39 APTT 30.5 Seconds (25.1-36.5) 02/08/18 18:39 - Constitutional Appears: Non-toxic, In Acute Distress - Head Exam Head Exam: NORMAL INSPECTION, NORMOCEPHALIC - Eye Exam Eye Exam: EOMI. absent: Nystagmus, Scleral icterus Pupil Exam: NORMAL ACCOMODATION - ENT Exam ENT Exam: Mucous Membranes Moist - Respiratory Exam Respiratory Exam: Clear to Ausculation Bilateral, NORMAL BREATHING PATTERN. absent: Rales, Rhonchi, Wheezes - Cardiovascular Exam Cardiovascular Exam: REGULAR RHYTHM, +S1, +S2. absent: Murmur - GI/Abdominal Exam GI & Abdominal Exam: Soft, Tenderness, Normal Bowel Sounds Additional comments: diffuse tenderness in abdominal area - Extremities Exam Extremities Exam: Normal Inspection. absent: Calf Tenderness, Pedal Edema - Neurological Exam Neurological Exam: Alert, Awake, Oriented x3 - Psychiatric Exam Psychiatric exam: Normal Affect, Normal Mood - Skin Skin Exam: Intact, Normal Color Assessment and Plan - Assessment and Plan (Free Text) Assessment: Patient is a 58 yo female with PMH of chronic back pain with herniated discs, kidney stones, depression who presents to ED for evaluation of abdominal pain and constipation; s/p hemorrhoidectomy 02/07 at [facility]; Imaging findings consistent with constipation without fecal impaction; Patient has been given trails of colace, miralax, and magenisum citrate yet patient still not having full bowel movement with no relief of her abdominal pain. Plan: Abdominal pain likely 2/2 constipation 02/08/18: Abdominal US shows Hepatic steatosis. 02/08/18: Abdominal XR shows Stool present throughout the colon and rectum, correlate with history of constipation/fecal impaction. 02/10/18: Abdominal/pelvic CT with IV contrast (12/06/17) was unremarkable, with no acute findings except findings consistent with constipation without fecal impaction. 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, L5-S1 Gabapentin 300mg po bid Toradol 30mg IVP q6h PRN Valium 2mg po bid PRN History of Depression Amitriptyline 50mg po daily Mirtazapine 45mg po HS PPX GI ppx- Pepcid 40mg po HS DVT ppx: SCDs <Yao Sifuentes - Last Filed: 02/12/18 13:35> Objective - Vital Signs/Intake and Output Vital Signs (last 24 hours): Temp Pulse Resp BP Pulse Ox 98.9 F 74 18 117/73 95 02/12/18 06:00 02/12/18 06:00 02/12/18 06:00 02/12/18 06:00 02/12/18 06:00 Intake and Output: 02/12/18 02/12/18 06:59 18:59 Intake Total 600 Balance 600 - Medications Medications: Current Medications Acetaminophen (Tylenol 325mg Tab) 650 mg PO Q6H [facility] Last Admin: 02/11/18 21:32 Dose: Not Given Amitriptyline HCl (Elavil) 50 mg PO DAILY [facility] Last Admin: 02/11/18 10:49 Dose: 50 mg Diazepam (Valium) 2 mg PO BID PRN; Protocol PRN Reason: Pain, moderate (4-7) Famotidine (Pepcid) 20 mg PO 1000,2200 [facility] Last Admin: 02/11/18 21:31 Dose: 20 mg Gabapentin (Neurontin) 300 mg PO BID [facility]; Protocol Last Admin: 02/11/18 17:44 Dose: 300 mg Ketorolac Tromethamine (Toradol) 30 mg IVP Q6H PRN PRN Reason: Pain, moderate (4-7) Last Admin: 02/11/18 05:36 Dose: 30 mg Lidocaine HCl (Xylocaine 2% (Uro-Jet)) 0 ea TOP TID [facility] Last Admin: 02/11/18 17:47 Dose: Not Given Mirtazapine (Remeron) 45 mg PO HS [facility] Last Admin: 02/11/18 21:30 Dose: 45 mg Vortioxetine Hydrobromide [ Trintellix] (Home Med) 1 tab PO DAILY [facility] Last Admin: 02/11/18 10:51 Dose: Not Given Ondansetron HCl (Zofran Inj) 4 mg IVP Q6H PRN PRN Reason: Nausea/Vomiting Last Admin: 02/11/18 22:32 Dose: 4 mg Polyethylene Glycol (Miralax) 17 gm PO BID [facility] Last Admin: 02/11/18 17:44 Dose: 17 gm - Labs Labs: 02/12/18 07:15 02/12/18 07:15 PT 12.0 SECONDS (9.4-12.5) 02/08/18 18:39 INR 1.05 02/08/18 18:39 APTT 30.5 Seconds (25.1-36.5) 02/08/18 18:39 Attending/Attestation - Attestation I have personally seen and examined this patient.: Yes I have fully participated in the care of the patient.: Yes I have reviewed all pertinent clinical information, including history, physical exam and plan: Yes Notes (Text): 02/11/18 58 year old female with past medical history of chronic back pain with herniated discs and recent hemorrhoidectomy who presented with abdominal pain and constipation. She received colace, miralax and magnesium citrate with minimun relief. Abdominal xray and CT showed constipation. Today received another magnesium citrate and enema as per surgery with bowel movements following. She is on antibiotics for possible UTI. UCX grew gram negative rods. Yao Sifuentes MD Hospitalist.
[2018-02-12 07:43] LABS: BASO # 0.01 K/mm3 (0.0-2.0); BASO % 0.1 % (0.0-3.0); EOS # 0.2 (0.0-0.7); EOS % 2.1 % (1.5-5.0); GRAN # 3.74 (1.4-6.5); GRAN % 52.5 % (50.0-68.0); LYMPH # 2.9 (1.2-3.4); LYMPH % 40.3 % (22.0-35.0); MEAN CELL VOLUME 93.5 fl (80.0-105.0); MEAN CORPUSCULAR HEMOGLOBIN 31.3 pg (25.0-35.0); MEAN CORPUSCULAR HGB CONC 33.5 g/dl (31.0-37.0); MEAN PLATELET VOLUME 9.8 fl (7.0-11.0); MONO # 0.4 (0.1-0.6); RBC 3.83 10^6/uL (3.5-6.1); RED CELL DISTRIBUTION WIDTH 13.6 % (11.5-14.5); WHITE BLOOD COUNT 7.1 10^3/ul (4.5-11.0)
[2018-02-12 08:05] LABS: ALB/GLOB RATIO 1.1 (1.1-1.8); ALBUMIN 3.9 g/dL (3.0-4.8); ALT/SGPT 22 U/L (7-56); AST/SGOT 25 U/L (14-36); BLOOD UREA NITROGEN 4 mg/dL (7-21); CALCIUM 9.1 mg/dL (8.4-10.5); GFR NON-AFRICAN AMERICAN > 60
[2018-02-12 08:53] VITALS: RESP 18
[2018-02-12] MEDS: cefTRIAXone 1 gm 1 GM/100 ML BAG IVPB SCH (14:46)
[2018-02-12 15:44] VITALS: BP 114/73; PULSE 78; TEMP 98.5; O2SAT 94
--- NOTE | 2018-02-12 16:58 | CP.PCM.DIS ---
<Elvira Ramsay - Last Filed: 02/12/18 17:17> Provider - Provider Date of Admission: 02/09/18 17:18 Attending physician: Yao Sifuentes MD Time Spent in preparation of Discharge (in minutes): 45 Hospital Course - Lab Results Lab Results: Micro Results 02/09/18 00:25 Blood Blood Culture - Preliminary NO GROWTH AFTER 3 DAYS 02/08/18 23:55 Blood Blood Culture - Preliminary NO GROWTH AFTER 3 DAYS 02/10/18 11:00 Urine Urine Culture - Final No Growth (<1,000 CFU/ML) 02/08/18 20:30 Urine Urine Culture - Final Gram Negative Jet Most Recent Lab Values WBC 7.1 10^3/ul (4.5-11.0) 02/12/18 07:15 RBC 3.83 10^6/uL (3.5-6.1) 02/12/18 07:15 Hgb 12.0 g/dL (12.0-16.0) 02/12/18 07:15 Hct 35.8 % (36.0-48.0) L 02/12/18 07:15 MCV 93.5 fl (80.0-105.0) 02/12/18 07:15 MCH 31.3 pg (25.0-35.0) 02/12/18 07:15 MCHC 33.5 g/dl (31.0-37.0) 02/12/18 07:15 RDW 13.6 % (11.5-14.5) 02/12/18 07:15 Plt Count 229 10^3/uL (120.0-450.0) 02/12/18 07:15 MPV 9.8 fl (7.0-11.0) 02/12/18 07:15 Gran % 52.5 % (50.0-68.0) 02/12/18 07:15 Lymph % (Auto) 40.3 % (22.0-35.0) H 02/12/18 07:15 Swisher % (Auto) 5.0 % (1.0-6.0) 02/12/18 07:15 Eos % (Auto) 2.1 % (1.5-5.0) 02/12/18 07:15 Baso % (Auto) 0.1 % (0.0-3.0) 02/12/18 07:15 Gran # 3.74 (1.4-6.5) 02/12/18 07:15 Lymph # (Auto) 2.9 (1.2-3.4) 02/12/18 07:15 Swisher # (Auto) 0.4 (0.1-0.6) 02/12/18 07:15 Eos # (Auto) 0.2 (0.0-0.7) 02/12/18 07:15 Baso # (Auto) 0.01 K/mm3 (0.0-2.0) 02/12/18 07:15 PT 12.0 SECONDS (9.4-12.5) 02/08/18 18:39 INR 1.05 02/08/18 18:39 APTT 30.5 Seconds (25.1-36.5) 02/08/18 18:39 Sodium 142 mmol/L (132-148) 02/12/18 07:15 Potassium 3.8 mmol/L (3.6-5.0) 02/12/18 07:15 Chloride 103 mmol/L (98-107) 02/12/18 07:15 Carbon Dioxide 32 mmol/L (21-33) 02/12/18 07:15 Anion Gap 11 (10-20) 02/12/18 07:15 BUN 4 mg/dL (7-21) L 02/12/18 07:15 Creatinine 0.6 mg/dl (0.7-1.2) L 02/12/18 07:15 Est GFR ( Amer) > 60 02/12/18 07:15 Est GFR (Non-Af Amer) > 60 02/12/18 07:15 Random Glucose 110 mg/dL (70-110) 02/12/18 07:15 Calcium 9.1 mg/dL (8.4-10.5) 02/12/18 07:15 Phosphorus 4.2 mg/dL (2.5-4.5) 02/10/18 07:30 Magnesium 2.1 mg/dL (1.7-2.2) 02/10/18 07:30 Total Bilirubin 0.5 mg/dL (0.2-1.3) 02/12/18 07:15 AST 25 U/L (14-36) 02/12/18 07:15 ALT 22 U/L (7-56) 02/12/18 07:15 Alkaline Phosphatase 88 U/L (38-126) 02/12/18 07:15 Total Protein 7.3 g/dL (5.8-8.3) 02/12/18 07:15 Albumin 3.9 g/dL (3.0-4.8) 02/12/18 07:15 Globulin 3.5 gm/dL 02/12/18 07:15 Albumin/Globulin Ratio 1.1 (1.1-1.8) 02/12/18 07:15 Amylase 127 U/L (35-125) H 02/08/18 18:39 Lipase 48 U/L (23-300) 02/08/18 18:39 Free T4 1.23 ng/dL (0.78-2.19) 02/09/18 07:30 TSH 3rd Generation 3.55 mIU/mL (0.46-4.68) 02/09/18 07:30 Urine Color Yellow (YELLOW) 02/10/18 11:00 Urine Appearance Clear (CLEAR) 02/10/18 11:00 Urine pH 6.5 (4.7-8.0) 02/10/18 11:00 Ur Specific [place] 1.010 (1.005-1.035) 02/10/18 11:00 Urine Protein Negative mg/dL (<30 mg/dL) 02/10/18 11:00 Urine Glucose (UA) Negative mg/dL (NEGATIVE) 02/10/18 11:00 Urine Ketones Negative mg/dL (NEGATIVE) 02/10/18 11:00 Urine Blood Small (NEGATIVE) H 02/10/18 11:00 Urine Nitrate Negative (NEGATIVE) 02/10/18 11:00 Urine Bilirubin Negative (NEGATIVE) 02/10/18 11:00 Urine Urobilinogen 0.2 E.U./dL (<1 E.U./dL) 02/10/18 11:00 Ur Leukocyte Esterase Small Lynne/uL (NEGATIVE) H 02/10/18 11:00 Urine RBC 2 - 5 /hpf (0-2) 02/10/18 11:00 Urine WBC 5 - 10 /hpf (0-6) 02/10/18 11:00 Ur Epithelial Cells 4 - 5 /hpf (0-5) 02/10/18 11:00 Urine Bacteria Mod (NEG) 02/10/18 11:00 - Hospital Course Hospital Course: Upon admission: 58 year old Irish speaking female with a PMH of UTI, constipation, chronic back pain with herniated discs, kidney stones, depression who presented to the ED due to abdominal pain and constipation for the past 2 days. Pt underwent a hemorrhoidectomy [address] Hill at . Since then, pt has had decreased appetite, diffuse abdominal pain with nausea with one episode of nonbloody vomiting on 02/09/2018. She has not had a bowel movement for the past 4 days. Pt also reports hematuria that is being managed by Dr. Jaguar Marcus, but endorses tactile fevers with chills and pain on urination. Pt denies dizziness, CP, SOB, leg pain or swelling. Hospital Course: 58 year old female admitted for abdominal pain, likely due to constipation. Abdominal US resulted hepatic steatosis; Abdominal XR resulted stool throughout the colon and rectum; abd/pelvis CT resulted constipation without fecal impaction. She was started on Miralax 1 packet BID and 300 mL Magnesium Citrate PO for constipation, without relief. Pt was given phosphate enema 135 mL RC x1, and had multiple bowel movements. She was also found to have UTI with UA resulting small blood, small leukocyte esterase, and 5-10 WBC; she was started on Ceftriaxone. Patient's abdominal discomfort decreased with no episodes of diarrhea today. Discharge plan: Patient is stable for discharge to home as per Dr. Sifuentes. Patient is to follow up with primary medical doctor within 3-5 days of discharge. Follow up with Dr. Hill as scheduled. Patient should resume all medications as prescribed and instructed in discharge instructions. Return to the emergency department if symptoms return or worsen. Patient understands and agrees with discharge plan. Disclaimer: Written above is a synopsis of patients current hospital admission. For full admission refer to EMR. Discharge Exam - Head Exam Head Exam: NORMAL INSPECTION, NORMOCEPHALIC - Eye Exam Eye Exam: EOMI, Normal appearance - ENT Exam ENT Exam: Mucous Membranes Moist - Respiratory Exam Respiratory Exam: NORMAL BREATHING PATTERN. absent: Respiratory Distress - Cardiovascular Exam Cardiovascular Exam: REGULAR RHYTHM, +S1, +S2 - GI/Abdominal Exam GI & Abdominal Exam: Normal Bowel Sounds, Soft - Neurological Exam Neurological exam: Alert, Oriented x3 - Psychiatric Exam Psychiatric exam: Normal Affect, Normal Mood - Skin Skin Exam: Intact, Normal Color Discharge Plan - Follow Up Plan Condition: FAIR Disposition: HOME/ ROUTINE Instructions: Constipation in Adults, Acute Abdominal Pain (DC), Acute Abdominal Pain (GEN) Additional Instructions: 1. Followup with primary medical doctor within 3-5 days of discharge from hospital. Please follow up with Dr. Hill as well within 3-5 days of discharge. 2. Continue taking all of home medications as prescribed. 3. Please return to Emergency Department if symptoms recur or worsen and/or any new symptoms. <Yao Sifuentes - Last Filed: 02/13/18 07:06> Provider - Provider Date of Admission: 02/09/18 17:18 Attending physician: Yao Sifuentes MD Hospital Course - Lab Results Lab Results: Micro Results 02/09/18 00:25 Blood Blood Culture - Preliminary NO GROWTH AFTER 4 DAYS 02/08/18 23:55 Blood Blood Culture - Preliminary NO GROWTH AFTER 4 DAYS 02/10/18 11:00 Urine Urine Culture - Final No Growth (<1,000 CFU/ML) 02/08/18 20:30 Urine Urine Culture - Final Gram Negative Jet Most Recent Lab Values WBC 7.1 10^3/ul (4.5-11.0) 02/12/18 07:15 RBC 3.83 10^6/uL (3.5-6.1) 02/12/18 07:15 Hgb 12.0 g/dL (12.0-16.0) 02/12/18 07:15 Hct 35.8 % (36.0-48.0) L 02/12/18 07:15 MCV 93.5 fl (80.0-105.0) 02/12/18 07:15 MCH 31.3 pg (25.0-35.0) 02/12/18 07:15 MCHC 33.5 g/dl (31.0-37.0) 02/12/18 07:15 RDW 13.6 % (11.5-14.5) 02/12/18 07:15 Plt Count 229 10^3/uL (120.0-450.0) 02/12/18 07:15 MPV 9.8 fl (7.0-11.0) 02/12/18 07:15 Gran % 52.5 % (50.0-68.0) 02/12/18 07:15 Lymph % (Auto) 40.3 % (22.0-35.0) H 02/12/18 07:15 Swisher % (Auto) 5.0 % (1.0-6.0) 02/12/18 07:15 Eos % (Auto) 2.1 % (1.5-5.0) 02/12/18 07:15 Baso % (Auto) 0.1 % (0.0-3.0) 02/12/18 07:15 Gran # 3.74 (1.4-6.5) 02/12/18 07:15 Lymph # (Auto) 2.9 (1.2-3.4) 02/12/18 07:15 Swisher # (Auto) 0.4 (0.1-0.6) 02/12/18 07:15 Eos # (Auto) 0.2 (0.0-0.7) 02/12/18 07:15 Baso # (Auto) 0.01 K/mm3 (0.0-2.0) 02/12/18 07:15 PT 12.0 SECONDS (9.4-12.5) 02/08/18 18:39 INR 1.05 02/08/18 18:39 APTT 30.5 Seconds (25.1-36.5) 02/08/18 18:39 Sodium 142 mmol/L (132-148) 02/12/18 07:15 Potassium 3.8 mmol/L (3.6-5.0) 02/12/18 07:15 Chloride 103 mmol/L (98-107) 02/12/18 07:15 Carbon Dioxide 32 mmol/L (21-33) 02/12/18 07:15 Anion Gap 11 (10-20) 02/12/18 07:15 BUN 4 mg/dL (7-21) L 02/12/18 07:15 Creatinine 0.6 mg/dl (0.7-1.2) L 02/12/18 07:15 Est GFR ( Amer) > 60 02/12/18 07:15 Est GFR (Non-Af Amer) > 60 02/12/18 07:15 Random Glucose 110 mg/dL (70-110) 02/12/18 07:15 Calcium 9.1 mg/dL (8.4-10.5) 02/12/18 07:15 Phosphorus 4.2 mg/dL (2.5-4.5) 02/10/18 07:30 Magnesium 2.1 mg/dL (1.7-2.2) 02/10/18 07:30 Total Bilirubin 0.5 mg/dL (0.2-1.3) 02/12/18 07:15 AST 25 U/L (14-36) 02/12/18 07:15 ALT 22 U/L (7-56) 02/12/18 07:15 Alkaline Phosphatase 88 U/L (38-126) 02/12/18 07:15 Total Protein 7.3 g/dL (5.8-8.3) 02/12/18 07:15 Albumin 3.9 g/dL (3.0-4.8) 02/12/18 07:15 Globulin 3.5 gm/dL 02/12/18 07:15 Albumin/Globulin Ratio 1.1 (1.1-1.8) 02/12/18 07:15 Amylase 127 U/L (35-125) H 02/08/18 18:39 Lipase 48 U/L (23-300) 02/08/18 18:39 Free T4 1.23 ng/dL (0.78-2.19) 02/09/18 07:30 TSH 3rd Generation 3.55 mIU/mL (0.46-4.68) 02/09/18 07:30 Urine Color Yellow (YELLOW) 02/10/18 11:00 Urine Appearance Clear (CLEAR) 02/10/18 11:00 Urine pH 6.5 (4.7-8.0) 02/10/18 11:00 Ur Specific [place] 1.010 (1.005-1.035) 02/10/18 11:00 Urine Protein Negative mg/dL (<30 mg/dL) 02/10/18 11:00 Urine Glucose (UA) Negative mg/dL (NEGATIVE) 02/10/18 11:00 Urine Ketones Negative mg/dL (NEGATIVE) 02/10/18 11:00 Urine Blood Small (NEGATIVE) H 02/10/18 11:00 Urine Nitrate Negative (NEGATIVE) 02/10/18 11:00 Urine Bilirubin Negative (NEGATIVE) 02/10/18 11:00 Urine Urobilinogen 0.2 E.U./dL (<1 E.U./dL) 02/10/18 11:00 Ur Leukocyte Esterase Small Lynne/uL (NEGATIVE) H 02/10/18 11:00 Urine RBC 2 - 5 /hpf (0-2) 02/10/18 11:00 Urine WBC 5 - 10 /hpf (0-6) 02/10/18 11:00 Ur Epithelial Cells 4 - 5 /hpf (0-5) 02/10/18 11:00 Urine Bacteria Mod (NEG) 02/10/18 11:00 Attending/Attestation - Attestation I have personally seen and examined this patient.: Yes I have fully participated in the care of the patient.: Yes I have reviewed all pertinent clinical information, including history, physical exam and plan: Yes Notes (Text): 02/12/18 58 year old female with past medical history of chronic back pain with herniated discs and recent hemorrhoidectomy who presented with abdominal pain and constipation. She was started on colace, miralax and magnesium citrate. Abdominal xray and CT showed constipation. Yesterday she received enema as per surgery and had good bowel movements with relief of symptoms. She was on antibiotics for possible UTI. UCX grew gram negative rods. Overall her symptoms improved. She is discharged home to follow up with pmd. Follow up with surgery. Continue with miralax and colace for constipation. Yao Sifuentes MD Hospitalist.
== END 2018-02-12 17:01 | disposition home or self-care (01) | DRG 182 ==
LOC: ED 16:30 → ERH 23:03 → 5RSO 02-09 02:02 → OBSVTOIN 02-09 17:18
PROVIDERS: ADMIT Internal Medicine; ATTEND Internal Medicine
DX: K59.00 Constipation, unspecified (principal); N39.0 Urinary tract infection, site not specified; K62.89 Other specified diseases of anus and rectum; K76.0 Fatty (change of) liver, not elsewhere classified; I10 Essential (primary) hypertension; Z87.442 Personal history of urinary calculi; Z80.9 Family history of malignant neoplasm, unspecified; G43.909 Migraine, unspecified, not intractable, without status migrainosus; M54.9 Dorsalgia, unspecified; Z86.010 Personal history of colon polyps